=== PATIENT | female | born 1965 | race Caucasian/White ===

== ENCOUNTER 2016-06-01 16:57 | Emergency (ER) | payer OTHER ==
[2016-06-01] MEDS ORDERED: DIAZEPAM 5 MG/ML 2 ML SYRINGE IVP STA (17:14)
[2016-06-01] MEDS ORDERED: KETOROLAC 60 MG/2 ML VIAL IVP STA (17:14)
--- NOTE | 2016-06-01 17:21 | ED ---
General Adult HPI - General Source: patient, RN notes reviewed Mode of arrival: ambulatory Limitations: no limitations <Zane Fernandez - Last Filed: 06/01/16 18:25> <Tony Palmer - Last Filed: 06/01/16 19:22> - General Chief complaint: Back Pain/Injury Stated complaint: Back Pain Time Seen by Provider: 06/01/16 17:00 - History of Present Illness Initial comments: This is a 51-year-old female who comes in complaining of back spasms on the right side. Patient states she was mopping the floor when all of a sudden her mid back on the right side started to hurt and she states any kind of movement makes it worse per patient states taking a deep breath seems to make it worse as well. Patient denies any previous problems at this area. Patient denies any blunt trauma to this area. Patient denies any recent fever chills or cough. Patient states it just feels like a muscle spasm. Patient denies any dysuria hematuria urinary frequency. Prior to the mopping of the floor patient states she had no problems in that area or any problems with shortness of breath. Patient states now it hurts to take a deep breath but she is not short of breath. (Zane Fernandez) - Related Data Home Medications Medication Instructions Recorded Confirmed Ergocalciferol [Vitamin D2] 50,000 unit PO QMONTH 06/01/16 06/01/16 Lisinopril [Zestril] 10 mg PO DAILY 06/01/16 06/01/16 Oxybutynin Chloride 10 mg PO BID 06/01/16 06/01/16 buPROPion HCL [Wellbutrin SR] 100 mg PO DAILY 06/01/16 06/01/16 Previous Rx's Medication Instructions Recorded Diazepam [Valium] 5 mg PO Q6H #10 tab 06/01/16 Hydrocodone/Acetaminophen [[place] 1 each PO Q4HR PRN #20 tab 06/01/16 5-325] Ibuprofen [Motrin] 600 mg PO Q6HR PRN #20 tab 06/01/16 Allergies Allergy/AdvReac Type Severity Reaction Status Date / Time No Known Allergies Allergy Verified 06/01/16 17:37 Review of Systems ROS Other: All systems not noted in ROS Statement are negative. <Zane Fernandez - Last Filed: 06/01/16 18:25> ROS Other: All systems not noted in ROS Statement are negative. <Tony Palmer - Last Filed: 06/01/16 19:22> ROS Statement: Those systems with pertinent positive or pertinent negative responses have been documented in the HPI. Past Medical History Past Medical History: Pneumonia History of Any Multi-Drug Resistant Organisms: None Reported Past Surgical History: Cholecystectomy, Hysterectomy Past Psychological History: No Psychological Hx Reported Smoking Status: Never smoker Past Alcohol Use History: None Reported Past Drug Use History: None Reported <Zane Fernandez - Last Filed: 06/01/16 18:25> General Exam Limitations: no limitations <Zane Fernandez - Last Filed: 06/01/16 18:25> <Tony Palmer - Last Filed: 06/01/16 19:22> - General Exam Comments Initial Comments: GENERAL: Patient is well-developed and well-nourished. Patient is nontoxic and well- hydrated and is in moderate distress. ENT: Neck is soft and supple. No significant lymphadenopathy is noted. Oropharynx is clear. Moist mucous membranes. SKIN: Skin is clear with no lesions or rashes and otherwise unremarkable. NEUROLOGIC: Patient is alert and oriented x3. Cranial nerves II through XII are grossly intact. Motor and sensory are also intact. Normal speech, volume and content. Symmetrical smile. MUSCULOSKELETAL: Normal extremities with adequate strength and full range of motion. Patient's back is tender in the mid thoracic region on the right movement deftly makes this area more painful LYMPHATICS: No significant lymphadenopathy is noted PSYCHIATRIC: Normal psychiatric evaluation. (Zane Fernandez) Course <Zane Fernandez - Last Filed: 06/01/16 18:25> <Tony Palmer - Last Filed: 06/01/16 19:22> Vital Signs 06/01/16 16:57 Temperature 97.9 F Pulse Rate 84 Respiratory 20 Rate Blood Pressure 123/73 O2 Sat by Pulse 93 L Oximetry - Reevaluation(s) Reevaluation #1: 06/01/16 19:21 The patient was endorsed to me by Dr. Fernandez at our shift change. Patient is feeling improved she will be discharged home I did discuss findings with her and her . She will get a note tomorrow she does a lot of heavy lifting. (Tony Palemr) Medical Decision Making <Zane Fernandez - Last Filed: 06/01/16 18:25> <Tony Palmer - Last Filed: 06/01/16 19:22> - Medical Decision Making Patient's chest x-ray shows no acute abnormality. Patient received Valium and Toradol as well as Dilaudid for her pain it did improve her considerably. (Zane Fernandez) - Lab Data Lab Results 06/01/16 Range/Units 17:58 Urine Color Yellow Urine Appearance Clear (Clear) Urine pH 5.5 (5.0-8.0) Ur Specific [place] 1.022 (1.001-1.035) Urine Protein Trace H (Negative) Urine Glucose (UA) Negative (Negative) Urine Ketones Trace H (Negative) Urine Blood Negative (Negative) Urine Nitrate Negative (Negative) Urine Bilirubin Negative (Negative) Urine Urobilinogen 2.0 (<2.0) mg/dL Ur Leukocyte Esterase Negative (Negative) Disposition Time of Disposition: 18:26 <Zane Fernandez - Last Filed: 06/01/16 18:25> <Tony Palmer - Last Filed: 06/01/16 19:22> Clinical Impression: Thoracic myofascial strain Disposition: HOME SELF-CARE Condition: Good Instructions: Thoracic Back Strain (ED) Prescriptions: Diazepam [Valium] 5 mg PO Q6H #10 tab Hydrocodone/Acetaminophen [[place] 5-325] 1 each PO Q4HR PRN #20 tab PRN Reason: Pain Ibuprofen [Motrin] 600 mg PO Q6HR PRN #20 tab PRN Reason: For pain Referrals: Alex Dennis MD [Primary Care Provider] - 1-2 days
--- NOTE | 2016-06-01 17:43 | XR ---
EXAMINATION TYPE: XR chest 2V DATE OF EXAM: 06/01/2016 5:40 PM COMPARISON: None HISTORY: 51-year-old female difficulty breathing TECHNIQUE: PA and lateral views FINDINGS: The cardiomediastinal silhouette, aorta, and pulmonary vasculature are within normal limits. Diffuse interstitial and peribronchial opacities are present without consolidation or pleural effusion. Some strandy bibasilar atelectasis is also noted. IMPRESSION: Diffuse interstitial and peribronchial densities could represent bronchitis, uncontrolled asthma, or atypical pneumonias.
[2016-06-01 18:05] LABS: Appearance,Urine Clear (Clear); Bilirubin,Urine Negative (Negative); Glucose,Urine (UA) Negative (Negative); Ketones,Urine Trace (Negative); Leukocyte Esterase,Urine Negative (Negative); Nitrite,Urine Negative (Negative); PH, Urine 5.5 (5.0-8.0); Protein,Urine Trace (Negative); Specific Gravity,Urine 1.022 (1.001-1.035); UA Billing (MACRO vs. MICRO) CHEM
[2016-06-01] MEDS: HYDROmorphone 1 MG/ML 1 ML SYRINGE IVP STA ×2 (18:11→18:44)
[2016-06-01] MEDS: ONDANSETRON 4 MG/2 ML VIAL IVP STA ×2 (18:15→19:24)
[2016-06-01 19:32] VITALS: BP 142/70; PULSE 78; RESP 16; TEMP 97.8
== END 2016-06-01 19:31 | disposition home or self-care (01) ==
LOC: EC 16:57
DX: S29.012A Strain of muscle and tendon of back wall of thorax, initial encounter (principal); Z87.01 Personal history of pneumonia (recurrent); Z79.899 Other long term (current) drug therapy; X58.XXXA Exposure to other specified factors, initial encounter
CPT/HCPCS: 81003; 71020; 99283; 96374; 96375 ×3; J3360; J2405; J1885; J1170

== ENCOUNTER 2016-07-25 10:06 | Day surgery (SDC) | payer OTHER ==
[2016-07-22 14:58] VITALS: BMI 36.6
[~2016-07-25 10:06] MED LIST: LACTATED RINGERS 1,000 ML IV SCH
[2016-07-25 11:31] VITALS: RESP 16; TEMP 97.5
[2016-07-25] MEDS ORDERED: PROPOFOL 10 MG/ML 20 ML VIAL IV ONE (11:39)
--- NOTE | 2016-07-25 12:01 | P.PCN ---
Date of Procedure: 07/25/16 Procedure(s) Performed: BRIEF HISTORY: Patient is a 51-year-old pleasant white female, scheduled for an elective colonoscopy as a part of screening for colorectal neoplasia. PROCEDURE PERFORMED: Colonoscopy snare polypectomy. PREOPERATIVE DIAGNOSIS: Screening for colon cancer. IV sedation per Anesthesia. PROCEDURE: After informed consent was obtained, the patient, was brought into the endoscopy unit. IV conscious sedation was administered by Anesthesia under continuous monitoring. Initially the Olympus CF-160 flexible video colonoscope was then inserted in the rectum, gradually advanced into the cecum without any difficulty. Careful examination was performed as the scope was gradually being withdrawn. Ileocecal valve and the appendiceal orifice were visualized and appeared normal. Prep was excellent. In the cecum there was a 1 cm polyp removed by snare polypectomy. Mucosa of the cecum, ascending colon, appeared normal. There was a 5 and admitted transverse colon polyp status post polypectomy. There was a 1 cm descending colon polyp status post snare polypectomy. There were 3 polyps in the sigmoid colon measuring 1 cm in size removed by snare polypectomy. The rest of the transverse colon, descending colon, sigmoid colon, and rectum appeared normal. Retroflexion was performed in the rectum and no lesions were seen. The patient tolerated the procedure well. IMPRESSION: 1 cm cecal polyp status post polypectomy 5 mm transverse colon polyp status post snare polypectomy 1 cm descending colon polyp status post snare polypectomy 1 cm 3 sigmoid colon polyp status post polypectomy RECOMMENDATIONS: Findings of this examination were discussed with the patient as well as her family. She was advised to follow with the biopsy results. If the biopsy shows a tubular adenoma she can have a repeat colonoscopy in 3 years.
[2016-07-25 12:28] VITALS: BP 108/56; PULSE 61
--- NOTE | 2016-07-30 08:36 | CDI ---
Dr. Yesenia Stack, Due to new rules about charging for conscious sedation, we noted conflicting information about type of sedation between your procedure note (stating IV CONSCIOUS sedation under Procedure heading) and Anesthesia Record which states Unconscious sedation. Because the word CONSCIOUS now has a different meaning for billing, we need you to stop dictating conscious sedation when Anesthesia is involved on your cases. FOR THIS CASE, WE NEED YOU TO DO ADDENDUM TO YOUR PROCEDURE NOTE THAT SAYS "Unconscious" SEDATION instead of CONSCIOUS SEDATION. Thank you mamta much for your assistance with this important billing compliance documentation issue. Sincerely, Davis Linares--wood flooring specialist Jordana Gallagher MBA, STATION EXAMINER, [facility] Client Care Coordinator, Tyler Bertrand [phone] [facility] STATE HOSPITALSkyler
--- NOTE | 2016-09-03 11:54 | PCN ---
DATE OF SERVICE: 07/25/2016 ADDENDUM: General anesthesia was utilized instead of IV conscious sedation.
== END 2016-07-25 12:40 | disposition home or self-care (01) ==
LOC: ORWHC2ENDO 10:06
PROVIDERS: ATTEND Internal Medicine Gastroenterology
DX: Z12.11 Encounter for screening for malignant neoplasm of colon (principal); D12.0 Benign neoplasm of cecum; D12.5 Benign neoplasm of sigmoid colon; D12.4 Benign neoplasm of descending colon; I10 Essential (primary) hypertension; J45.909 Unspecified asthma, uncomplicated; Z88.8 Allergy status to other drugs, medicaments and biological substances; Z79.51 Long term (current) use of inhaled steroids; Z79.899 Other long term (current) drug therapy
CPT/HCPCS: 88305; 45385; J2704

== ENCOUNTER → 2016-10-01 | Outpatient (CLI) | payer OTHER ==
--- NOTE | 2016-10-01 14:45 | XR ---
EXAMINATION TYPE: XR lumbar spine 2 or 3V DATE OF EXAM: 10/01/2016 CLINICAL HISTORY: pain TECHNIQUE: Three views of the lumbar spine are submitted. COMPARISON: None. FINDINGS: There are 5 lumbar type vertebral bodies identified. The lumbar spine shows satisfactory alignment w ithout evidence of acute fracture or dislocation. Vertebral body heights are within normal limits. Mild degenerative disc space narrowing and spondylosis. The overlying soft tissue appears unremarkab le. IMPRESSION: No acute fracture or dislocation is seen in the lumbar spine. ICD 10 NO FRACTURE, INITIAL EVALUATION
== END | disposition home or self-care (01) ==
LOC: RADXRMAIN 14:29
PROVIDERS: ATTEND Emergency Medicine
DX: S39.012A Strain of muscle, fascia and tendon of lower back, initial encounter (principal)
CPT/HCPCS: 72100

== ENCOUNTER → 2016-10-09 | Outpatient (CLI) | payer OTHER ==
--- NOTE | 2016-10-09 09:50 | XR ---
EXAMINATION TYPE: XR Hip Complete LT DATE OF EXAM: 10/09/2016 CLINICAL HISTORY: Pain TECHNIQUE: AP and frogleg views of the left hip are obtained. COMPARISON: None. FINDINGS: There is no acute fracture/dislocation evident in the left hip. The joint space in the le ft hip appears within normal limits. The overlying soft tissue appears unremarkable. IMPRESSION: There is no acute fracture or dislocation in the left hip.
== END | disposition home or self-care (01) ==
LOC: RADXRMAIN 09:29
PROVIDERS: ATTEND Emergency Medicine
DX: M54.16 Radiculopathy, lumbar region (principal)
CPT/HCPCS: 73502

== ENCOUNTER → 2016-10-11 | Outpatient (CLI) | payer OTHER ==
--- NOTE | 2016-10-11 11:27 | MR ---
EXAMINATION TYPE: MR lumbar spine wo con DATE OF EXAM: 10/11/2016 COMPARISON: NONE HISTORY: strain of muscles of lower back TECHNIQUE: T1 and T2 axial and sagittal images of the lumbar spine are submitted. FINDINGS: There is no abnormal signal seen within the visualized paraspinal soft tissues. Artifact i s noted within the distal thoracic spinal cord at the T11-12 level. Vertebral body hemangioma is note d at L4 and L3 At L1-2 there is no disc herniation or canal stenosis. No foraminal encroachment. At L2-3 there is no disc herniation or canal stenosis. No foraminal encroachment. At L3-4 there is broad-based central disc bulging no evidence of canal stenosis or focal herniation. Mild bilateral foraminal encroachment. Intermediate signal within the left neural foramina on axial i mage 15 At L4-5 there is broad-based central and right paracentral disc bulging or small protrusion with mode rate effacement of thecal sac. Moderate right-sided foraminal encroachment and mild left-sided forami nal encroachment. Facet arthropathy noted with borderline canal stenosis. At L5-S1 there is no disc herniation or canal stenosis. No foraminal encroachment. Multilevel degenerative disc disease noted. There is a complicated mass only partially included on the exam within the pelvis measuring at least 8.5 cm. IMPRESSION: 1. Large complicated pelvic mass only partially included measuring at least 8.[address] abdo men pelvis. 2. Right paracentral disc bulging or small protrusion L4-L5 with borderline to mild canal stenosis an d moderate right-sided foraminal encroachment 3. Disc bulging L3-L4 but no canal stenosis or foraminal encroachment 4. There is intermediate signal within the left neural foramina at the L3-L4 level. Recommend the pat ient return for postcontrast imaging for further assessment to determine if this is related to extrud ed disc or other etiology.
== END | disposition home or self-care (01) ==
LOC: RADMRIMAIN 09:55
PROVIDERS: ATTEND Emergency Medicine
DX: M48.06 Spinal stenosis, lumbar region (principal); M51.26 Other intervertebral disc displacement, lumbar region
CPT/HCPCS: 72148

== ENCOUNTER → 2016-10-20 | Outpatient (CLI) | payer OTHER ==
--- NOTE | 2016-10-20 20:02 | CT ---
EXAMINATION TYPE: CT pelvis w con DATE OF EXAM: 10/20/2016 COMPARISON: NONE HISTORY: Pelvic mass found on MRI. CT DLP: 1035.00 mGycm Automated exposure control for dose reduction was used. CONTRAST: Performed with IV Contrast, patient injected with 100 mL of Omnipaque 300. FINDINGS: There is a 13 x 9 x 9 cm mixed attenuation mass in the midline pelvis above the urinary bladder. The uterus is not well defined. Urinary bladder distends smoothly. There is a cystic fluid collection in the cul-de-sac that measures 3 cm. The mass does not contain calcification. There is both soft tissue attenuation and fluid attenuation in the large pelvic mass. There is no sign of a bowel obstruction. Kidneys show no hydronephrosis. There is no evidence of a renal mass. There is no sign of appendicit is. I see no pelvic lymphadenopathy. IMPRESSION: THERE IS A LARGE MIDLINE MIXED ATTENUATION PELVIC MASS. THIS IS PROBABLY OF UTERINE OR OVARIAN ORIGIN AND I WOULD CONSIDER BOTH BENIGN AND MALIGNANT TUMOR. FOLLOW-UP IS RECOMMENDED.
== END | disposition home or self-care (01) ==
LOC: RADCTMAIN 17:28
PROVIDERS: ATTEND Family Medicine
DX: R19.00 Intra-abdominal and pelvic swelling, mass and lump, unspecified site (principal); R10.2 Pelvic and perineal pain
CPT/HCPCS: 72193; Q9967

== ENCOUNTER → 2016-11-18 | Outpatient (CLI) | payer OTHER ==
[2016-11-18 16:38] LABS: Basophils # (A) 0.1 k/uL (0-0.2); Basophils % (A) 1 %; CH 32.9; CHCM 34.8; Eosinophils # (A) 0.4 k/uL (0-0.7); Eosinophils % (A) 4 %; HCT 41.8 % (34.0-46.0); HDW 2.36; HGB 14.2 gm/dL (11.4-16.0); Luc # (Auto) 0.22; Luc % (Auto) 2; Lymphocytes # (A) 2.1 k/uL (1.0-4.8); Lymphocytes % (A) 21 %; MCH 32.1 pg (25.0-35.0); MCHC 33.9 g/dL (31.0-37.0); MCV 94.9 fL (80.0-100.0); Mean Platelet Volume 7.3; Monocytes # (A) 0.5 k/uL (0-1.0); Monocytes % (A) 5 %; Neutrophils # (A) 6.6 k/uL (1.3-7.7); Neutrophils % (A) 67 %; RBC 4.41 m/uL (3.80-5.40); RDW 13.7 % (11.5-15.5); WBC 9.9 k/uL (3.8-10.6); WBC (Perox) 9.86
[2016-11-18 16:53] LABS: Anion Gap 9 mmol/L; Blood Urea Nitrogen 9 mg/dL (7-17); Carbon Dioxide 24 mmol/L (22-30); Chloride 106 mmol/L (98-107); Glucose 78 mg/dL (74-99); Non-African American GFR(MDRD) >60 (>60 ml/min/1.73 sqM); Potassium 4.3 mmol/L (3.5-5.1); Sodium 139 mmol/L (137-145)
== END | disposition home or self-care (01) ==
LOC: LABPAT 16:04
PROVIDERS: ATTEND Obstetrics & Gynecology
DX: Z01.812 Encounter for preprocedural laboratory examination (principal); I10 Essential (primary) hypertension; N83.9 Noninflammatory disorder of ovary, fallopian tube and broad ligament, unspecified
CPT/HCPCS: 36415; 80051; 82565; 82947; 84520; 85025; 86850; 86900; 86901; 87086

== ENCOUNTER 2016-11-24 05:49 | Inpatient (IN) | payer OTHER ==
[2016-11-19 14:32] VITALS: BMI 36.6
[~2016-11-24 05:49] MED LIST changes: +DEXAMETHASONE SOD PHOSPHATE 10 MG/ML 1 ML VIAL IV ONE; -LACTATED RINGERS 1,000 ML IV SCH; +LIDOCAINE 1% 20 ML VIAL (10MG/ML) FOR IV START INTRADERMA PRN; +MIDAZOLAM 2 MG/2 ML VIAL IV PRN; +ONDANSETRON 4 MG/2 ML VIAL IVP ONE; +ONDANSETRON 4 MG/2 ML VIAL IVP PRN; +SCOPOLAMINE 1.5MG/72HR PATCH TRANSDERM ONE; +ceFAZolin 2 GM in SODIUM CHLORIDE 0.9% 100 ML IVPB ONE
[2016-11-24] MEDS: LACTATED RINGERS 1,000 ML IV SCH ×2 (06:33→20:02)
[2016-11-24] MEDS ORDERED: LACTATED RINGERS 1,000 ML IV ONE (08:03)
[2016-11-24] MEDS ORDERED: ONDANSETRON 4 MG/2 ML VIAL IVP PRN (08:06)
[2016-11-24] MEDS ORDERED: Acetaminophen-Codeine 300-30mg TAB PO PRN (08:06)
[2016-11-24] MEDS ORDERED: IBUPROFEN 600 MG TAB PO PRN (08:06)
[2016-11-24] MEDS ORDERED: METOCLOPRAMIDE 5 MG/ML 2 ML VIAL IVP PRN (08:06)
--- NOTE | 2016-11-24 08:06 | P.OP ---
Date of Procedure: 11/24/16 Preoperative Diagnosis: 14 cm complex right adnexal mass Postoperative Diagnosis: Pathology pending Procedure(s) Performed: Exploratory laparotomy, pelvic washings, bilateral salpingo-oophorectomy. Implants: Anesthesia: spinal Surgeon: Katelyn Gaviria Size Cutter #1: Geni Daphnie Estimated Blood Loss (ml): 50 IV fluids (ml): 800 Urine output (ml): 50 Pathology: other Condition: stable Disposition: PACU Indications for Procedure: Operative Findings: Description of Procedure: Patient is brought to the operating suite where general anesthetic is administered. She's placed in the dorsal supine position. The abdomen is prepped and draped in the usual sterile fashion, Black catheter to direct drainage. IV antibiotics given. The appropriate timeout is performed to assure proper patient and procedural identification. A low transverse skin incision is made in this is carried down through the subcutaneous tissue which is approximate 6-8 cm deep. Fascia is scored, isolated and extended bilaterally with curved Mandujano scissors. Peritoneum is next identified and incised. Pelvic washings are obtained and sent to pathology. The right pelvic mass is noted and brought up through the incision with the aid of 8D for retractor. It is clamped along the base with Dk clamps and removed intact, on broken. The pedicle is tied with 0 Vicryl suture , flashed, and retied. The left tube and ovary are then identified, brought into the incision with a Marcia clamp. Dk is used across the base of this as well, Mandujano scissors are used and it is removed and sent to pathology under separate cover for evaluation. The pedicle is tied with 0 Vicryl suture, flashed, retied for excellent hemostasis. Inspection now of the pelvis reveals it to be clean and dry. Urine is clear in the Black catheter. Peritoneum was allowed to close by secondary intention. Fascia is closed in a running fashion with 0 Vicryl suture for excellent reapproximation. Subcutaneous tissue is clean and dry. It is reapproximated with 3-0 Vicryl in a running fashion. 4-0 undyed Vicryl issues for final skin closure. Steri- Strips and Mastisol are applied to the wound. Black is noted to be draining clear urine. Patient is brought back to the recovery room in very good condition with stable vital signs including pulse of 82, blood pressure 135/87. All sponge needle and instrument counts are correct at the end of this procedure.
[2016-11-24] MEDS: HYDROmorphone 1 MG/ML 1 ML SYRINGE IVP PRN ×2 (08:25→08:40)
[2016-11-24] MEDS: diphenhydrAMINE 50 MG/ML 1 ML VIAL IVP PRN ×3 (08:26→21:09)
[2016-11-24] MEDS: KETOROLAC 30 MG/ML 1 ML VIAL IVP PRN ×3 (08:26→21:17)
[2016-11-24] MEDS ORDERED: GLYCOPYRROLATE 0.2 MG/ML 2 ML VIAL ONE (09:02)
[2016-11-24] MEDS ORDERED: fentaNYL (PF) 50 MCG/ML 2 ML AMP ONE (09:02)
[2016-11-24] MEDS ORDERED: ROCURONIUM BROMIDE 10 MG/ML 10 ML VIAL IV ONE (09:02)
[2016-11-24] MEDS ORDERED: MIDAZOLAM 2 MG/2 ML VIAL ONE (09:02)
[2016-11-24] MEDS ORDERED: NEOSTIGMINE 1 MG/ML 10 ML VIAL ONE (09:02)
[2016-11-24] MEDS ORDERED: PROPOFOL 10 MG/ML 20 ML VIAL IV ONE (09:02)
[2016-11-24] MEDS ORDERED: HYDROmorphone (PF) 1 MG/ML ONE (09:02)
[2016-11-24] MEDS ORDERED: SUCCINYLCHOLINE CHLORIDE 100 MG/5 ML SYR IV ONE (09:02)
[2016-11-24] MEDS ORDERED: LIDOCAINE 1% INJ 10MG/ML (20 ML MDV) ONE (09:02)
[2016-11-24] MEDS ORDERED: NALBUPHINE 10 MG/ML AMPUL IV ONE (09:25)
[2016-11-24] MEDS ORDERED: NALOXONE 0.4 MG/ML 1 ML VIAL IV PRN (09:44)
[2016-11-24] MEDS ORDERED: ALBUTEROL NEBULIZED 2.5 MG/3 ML INHALATION PRN (14:12)
[2016-11-24] MEDS: SIMETHICONE 80 MG CHEWABLE PO PRN (18:04)
[2016-11-24] MEDS: SYMBICORT 160-4.5 MCG INHALER INHALATION SCH (19:28)
[2016-11-24] MEDS: GABAPENTIN 100 MG CAP PO SCH (21:12)
[2016-11-24] MEDS: buPROPion SR 150 MG TABLET.ER PO SCH (21:12)
[2016-11-25] MEDS: diphenhydrAMINE 50 MG/ML 1 ML VIAL IVP PRN (04:34)
[2016-11-25] MEDS: KETOROLAC 30 MG/ML 1 ML VIAL IVP PRN ×2 (04:35→09:50)
[2016-11-25] MEDS: SIMETHICONE 80 MG CHEWABLE PO PRN (08:04)
[2016-11-25] MEDS ORDERED: ACETAMINOPHEN TAB 325 MG TAB PO PRN (08:07)
[2016-11-25] MEDS: GABAPENTIN 100 MG CAP PO SCH (08:24)
[2016-11-25] MEDS: buPROPion SR 150 MG TABLET.ER PO SCH (08:24)
[2016-11-25] MEDS ORDERED: LISINOPRIL 5 MG TAB PO SCH (09:00)
[2016-11-25] MEDS: SYMBICORT 160-4.5 MCG INHALER INHALATION SCH (09:19)
--- NOTE | 2016-11-25 09:52 | P.PN ---
Progress Note - Text Date:11/25 Time:720 Patient is status post vag hyst. Patient seen this morning with VAS score of 4. c/o of pruritus, no c/o nausea/vomiting, comfortable and doing well.
--- NOTE | 2016-11-25 10:32 | P.DS ---
Providers Date of admission: 11/24/16 05:49 Expected date of discharge: 11/25/16 Attending physician: Katelyn Gaviria Primary care physician: Stated None Hospital Course: This is a 51-year-old white female who presents with a history of an enlarged complex right ovarian mass measuring 13-14 cm in diameter. LIAM testing has been performed and reveals low likelihood for malignancy. Decision is made for exploratory laparotomy, pelvic washings, removal of right adnexal mass and left salpingo-oophorectomy. Patient is otherwise healthy, she is status post vaginal hysterectomy years ago for benign conditions. Please see my dictated history and physical for details. Patient underwent exploratory laparotomy, removal of the right adnexal mass, left salpingo-oophorectomy and pelvic washings under my care on 11/24/2016. She did well intraoperatively. Skin was closed with a subcuticular stitch, Steri-Strips and Mastisol applied. No intraoperative competitions, please see my dictated operative note for details. This morning the patient is doing very well. Her pain is well-controlled. She is voiding, ambulate and, passing flatus without difficulty. Vital signs are stable and she is afebrile. Incision is clean and dry, intact, Steri-Strips applied. She has mild peripheral itching but no rash, likely from the Duramorph spinal. Patient is being discharged home today in good condition. She is reminded to use her Tri-flow every several hours at home to avoid any pulmonary postoperative complications. She has a history of smoking and has slightly diminished airflow at the bases bilaterally. She will use [id number] ibuprofen products as needed for pain, 200 mg pills, 3 every 6 hours as needed. I've asked her to call me with any fevers shakes or chills, redness or drainage of the incision, with any difficulties breathing, with any pain not alleviated by ibuprofen, or indeed with any concerns. Pathology is pending at the time of this report. No driving, no intercourse, no heavy lifting, limited stair climbing. Patient Condition at Discharge: Good Plan - Discharge Summary New Discharge Prescriptions: No Action Oxybutynin Chloride 5 mg PO BID Budesonide-Formot 160-4.5 Mcg [Symbicort 160-4.5 Mcg Inhaler] 1 - 2 puff INHALATION RT-BID Albuterol Inhaler [Ventolin Hfa Inhaler] 1 - 2 puff INHALATION RT-Q6H PRN PRN Reason: Dyspnea Lisinopril [Zestril] 5 mg PO DAILY Gabapentin [Neurontin] 100 mg PO BID buPROPion SR [Wellbutrin SR] 150 mg PO BID Discharge Medication List Oxybutynin Chloride 5 mg PO BID 06/01/16 [History] Albuterol Inhaler [Ventolin Hfa Inhaler] 1 - 2 puff INHALATION RT-Q6H PRN [History] Budesonide-Formot 160-4.5 Mcg [Symbicort 160-4.5 Mcg Inhaler] 1 - 2 puff INHALATION RT-BID 07/22/16 [History] Gabapentin [Neurontin] 100 mg PO BID 11/19/16 [History] Lisinopril [Zestril] 5 mg PO DAILY 11/19/16 [History] buPROPion SR [Wellbutrin SR] 150 mg PO BID 11/24/16 [History] Follow up Appointment(s)/Referral(s): Katelyn Gaviria MD [STAFF PHYSICIAN] - 2 Weeks Discharge Disposition: HOME SELF-CARE
[2016-11-25 12:10] VITALS: BP 95/52; PULSE 79; RESP 20; TEMP 97.6
== END 2016-11-25 13:12 | disposition home or self-care (01) | DRG 743 ==
LOC: 2ORWHC 05:49 → 6PED 08:17
PROVIDERS: ADMIT Obstetrics & Gynecology; ATTEND Obstetrics & Gynecology
PROC: 0UT70ZZ Resection of Bilateral Fallopian Tubes, Open Approach (ICD-10-PCS; principal; 2016-11-24 07:00)
PROC: 0UT20ZZ Resection of Bilateral Ovaries, Open Approach (ICD-10-PCS; principal; 2016-11-24 07:00)
DX: N83.9 Noninflammatory disorder of ovary, fallopian tube and broad ligament, unspecified (principal); F32.9 Major depressive disorder, single episode, unspecified; J44.9 Chronic obstructive pulmonary disease, unspecified; J45.909 Unspecified asthma, uncomplicated; Z87.891 Personal history of nicotine dependence; K21.9 Gastro-esophageal reflux disease without esophagitis; F17.200 Nicotine dependence, unspecified, uncomplicated
CPT/HCPCS: 86850; 86900; 86901; 88108; 88305; 88307; 94640; 94760

== ENCOUNTER 2017-10-01 05:12 | Emergency (ER) | payer OTHER ==
[2017-10-01] MEDS ORDERED: IPRATROPIUM-ALBUTEROL 3 ML NEB INHALATION STA (05:28)
[2017-10-01] MEDS ORDERED: IPRATROPIUM 0.5 MG/2.5 ML NEBU INHALATION STA (05:32)
[2017-10-01] MEDS ORDERED: SODIUM CHLORIDE 0.9% 1,000 ML IV STA (05:32)
[2017-10-01] MEDS ORDERED: EPINEPHrine 1 MG/ML 1 ML AMP SQ STA (05:32)
[2017-10-01] MEDS ORDERED: ALBUTEROL NEBULIZED 2.5 MG/3 ML INHALATION STA (05:32)
[2017-10-01] MEDS ORDERED: methylPREDNISolone SOD SUCCI 125 MG/2 ML VIAL IV STA (05:32)
[2017-10-01 06:06] LABS: Basophils % (A) 0 %; Eosinophils # (A) 0.3 k/uL (0-0.7); Eosinophils % (A) 3 %; HCT 42.7 % (34.0-46.0); HGB 14.9 gm/dL (11.4-16.0); Lymphocytes # (A) 1.6 k/uL (1.0-4.8); Lymphocytes % (A) 14 %; MCH 31.2 pg (25.0-35.0); MCHC 34.9 g/dL (31.0-37.0); MCV 89.4 fL (80.0-100.0); Monocytes # (A) 0.7 k/uL (0-1.0); Monocytes % (A) 6 %; Neutrophils # (A) 8.1 k/uL (1.3-7.7); Neutrophils % (A) 75 %; Platelet Count 270 k/uL (150-450); RBC 4.77 m/uL (3.80-5.40); RDW 12.8 % (11.5-15.5); WBC 10.8 k/uL (3.8-10.6)
[2017-10-01 06:18] LABS: D-Dimer 0.33 mg/L FEU (<0.60); Partial Thromboplastin Time 25.3 sec (22.0-30.0); Prothrombin Time 9.5 sec (9.0-12.0)
[2017-10-01 06:20] LABS: ALT 39 U/L (9-52); AST 25 U/L (14-36); Alkaline Phosphatase 112 U/L (38-126); Anion Gap 12 mmol/L; Blood Urea Nitrogen 10 mg/dL (7-17); Calcium 9.3 mg/dL (8.4-10.2); Carbon Dioxide 21 mmol/L (22-30); Chloride 111 mmol/L (98-107); Glucose 113 mg/dL (74-99); Sodium 144 mmol/L (137-145); Total Bilirubin 0.4 mg/dL (0.2-1.3); Total Protein 6.3 g/dL (6.3-8.2)
--- NOTE | 2017-10-01 06:28 | ED ---
SOB HPI - General Chief Complaint: Shortness of Breath Stated Complaint: asthma attack Time Seen by Provider: 10/01/17 05:28 Source: patient Mode of arrival: ambulatory Limitations: no limitations - History of Present Illness Initial Comments: 52 years old female has a history of asthma presents with extreme shortness of breath, it hurts to take a deep breath shortness of breath got worse over 24 hours she has been using her nebulizers but then now been effective denies any fever no chills she does cough she is not bringing up any phlegm. - Related Data Home Medications Medication Instructions Recorded Confirmed Oxybutynin Chloride 5 mg PO BID 06/01/16 10/01/17 Albuterol Inhaler [Ventolin Hfa 1 - 2 puff INHALATION RT-Q6H PRN 07/22/16 Inhaler] Budesonide-Formot 160-4.5 Mcg 1 - 2 puff INHALATION RT-BID 07/22/16 10/01/17 [Symbicort 160-4.5 Mcg Inhaler] Gabapentin [Neurontin] 100 mg PO BID 11/19/16 10/01/17 Lisinopril [Zestril] 5 mg PO DAILY 11/19/16 10/01/17 buPROPion SR [Wellbutrin SR] 150 mg PO BID 11/24/16 10/01/17 Progesterone, Micronized 200 mg PO 10/01/17 [Progesterone] Previous Rx's Medication Instructions Recorded Azithromycin [Zithromax Tri-Jean Paul] 500 mg PO DAILY #3 tab 10/01/17 predniSONE 50 mg PO DAILY #5 tab 10/01/17 Allergies Allergy/AdvReac Type Severity Reaction Status Date / Time Ruhxopq-Weq-Teq Reductase Allergy leg pain Verified 11/24/16 10:14 Inhibitor Review of Systems ROS Statement: Those systems with pertinent positive or pertinent negative responses have been documented in the HPI. ROS Other: All systems not noted in ROS Statement are negative. Past Medical History Past Medical History: Asthma, Cancer, Hypertension Additional Past Medical History / Comment(s): OVER-ACTIVE BLADDER, SKIN CANCER, HERNIATED DISCS AND BACK PAIN., STATES MASS ON OVARY. History of Any Multi-Drug Resistant Organisms: None Reported Past Surgical History: Cholecystectomy, Hysterectomy, Tubal Ligation Additional Past Surgical History / Comment(s): PARTIAL HYSTERECTOMY. Past Anesthesia/Blood Transfusion Reactions: Motion Sickness, Postoperative Nausea & Vomiting (PONV) Past Psychological History: ADD/ADHD, Anxiety Smoking Status: Former smoker - Past Family History Mother Family Medical History: No Reported History Father Family Medical History: Cancer Additional Family Medical History / Comment(s): PROSTATE CANCER General Exam - General Exam Comments Initial Comments: General: The patient is awake and alert, in no distress, and does not appear acutely ill. Skin: Skin is warm and dry and no rashes or lesions are noted. Eye: Pupils are equal, round and reactive to light, extra-ocular movements are intact; there is normal conjunctiva bilaterally. Ears, nose, mouth and throat: There are moist mucous membranes and no oral lesions. Neck: The neck is supple, there is no tenderness or JVD. Cardiovascular: There is a regular rate and rhythm. No murmur, rub or gallop is appreciated. Respiratory: To auscultation bilateral, barely moving any air respiratory rate is 24 Gastrointestinal: Soft, non-distended, non-tender abdomen without masses or organomegaly noted. There is no rebound or guarding present. Bowel sounds are unremarkable. Back: There is no tenderness to palpation in the midline. There is no obvious deformity. Musculoskeletal: Normal ROM, no tenderness, There is no pedal edema. There is no calf tenderness or swelling. No cords were appreciated. Neurological: CN II-XII intact, Cranial nerves III through XII are intact. There are no obvious motor or sensory deficits. Coordination appears grossly intact. Speech is normal. Psychiatric: Cooperative, appropriate mood & affect, normal judgment. Limitations: no limitations Course Vital Signs 10/01/17 10/01/17 10/01/17 05:14 05:31 05:43 Temperature 98.2 F Pulse Rate 77 68 Respiratory 24 20 Rate Blood Pressure 119/65 O2 Sat by Pulse 97 Oximetry 10/01/17 10/01/17 06:11 06:16 Temperature Pulse Rate 82 75 Respiratory 20 Rate Blood Pressure 134/76 O2 Sat by Pulse 98 Oximetry EKG is normal sinus rhythm ventricular rate is 67 SC interval is 146 QRS duration is 90 QT/QTc is 390/[birth year]1949 CK G does not reveal any ST elevation or ST depression him and noticed some mild T-wave inversion in lead 3 She is reassessed at term 640, she is moving air better she is able to carry on a conversation and thoracic, suspected infiltrate on the right side she be gone home on Levaquin 500 milligrams once daily for next 5 days prednisone 50 mg 1 tablet daily for next 5 days and I'll refer her to Dr. Veliz Medical Decision Making - Lab Data Result diagrams: 10/01/17 05:55 10/01/17 05:55 Lab Results 10/01/17 10/01/17 10/01/17 Range/Units 05:55 05:55 05:55 WBC 10.8 H (3.8-10.6) k/uL RBC 4.77 (3.80-5.40) m/uL Hgb 14.9 (11.4-16.0) gm/dL Hct 42.7 (34.0-46.0) % MCV 89.4 (80.0-100.0) fL MCH 31.2 (25.0-35.0) pg MCHC 34.9 (31.0-37.0) g/dL RDW 12.8 (11.5-15.5) % Plt Count 270 (150-450) k/uL Neutrophils % 75 % Lymphocytes % 14 % Monocytes % 6 % Eosinophils % 3 % Basophils % 0 % Neutrophils # 8.1 H (1.3-7.7) k/uL Lymphocytes # 1.6 (1.0-4.8) k/uL Monocytes # 0.7 (0-1.0) k/uL Eosinophils # 0.3 (0-0.7) k/uL Basophils # 0.0 (0-0.2) k/uL PT (9.0-12.0) sec INR (<1.2) APTT (22.0-30.0) sec D-Dimer (<0.60) mg/L FEU Sodium 144 (137-145) mmol/L Potassium 4.0 (3.5-5.1) mmol/L Chloride 111 H (98-107) mmol/L Carbon Dioxide 21 L (22-30) mmol/L Anion Gap 12 mmol/L BUN 10 (7-17) mg/dL Creatinine 0.63 (0.52-1.04) mg/dL Est GFR (CKD-EPI)AfAm >90 (>60 ml/min/1.73 sqM) Est GFR (CKD-EPI)NonAf >90 (>60 ml/min/1.73 sqM) Glucose 113 H (74-99) mg/dL Calcium 9.3 (8.4-10.2) mg/dL Total Bilirubin 0.4 (0.2-1.3) mg/dL AST 25 (14-36) U/L ALT 39 (9-52) U/L Alkaline Phosphatase 112 (38-126) U/L Total Creatine Kinase 113 (30-135) U/L CK-MB (CK-2) 0.8 (0.0-2.4) ng/mL CK-MB (CK-2) Rel Index 0.7 Troponin I <0.012 (0.000-0.034) ng/mL Total Protein 6.3 (6.3-8.2) g/dL Albumin 4.0 (3.5-5.0) g/dL 10/01/17 Range/Units 05:55 WBC (3.8-10.6) k/uL RBC (3.80-5.40) m/uL Hgb (11.4-16.0) gm/dL Hct (34.0-46.0) % MCV (80.0-100.0) fL MCH (25.0-35.0) pg MCHC (31.0-37.0) g/dL RDW (11.5-15.5) % Plt Count (150-450) k/uL Neutrophils % % Lymphocytes % % Monocytes % % Eosinophils % % Basophils % % Neutrophils # (1.3-7.7) k/uL Lymphocytes # (1.0-4.8) k/uL Monocytes # (0-1.0) k/uL Eosinophils # (0-0.7) k/uL Basophils # (0-0.2) k/uL PT 9.5 (9.0-12.0) sec INR 1.0 (<1.2) APTT 25.3 (22.0-30.0) sec D-Dimer 0.33 (<0.60) mg/L FEU Sodium (137-145) mmol/L Potassium (3.5-5.1) mmol/L Chloride (98-107) mmol/L Carbon Dioxide (22-30) mmol/L Anion Gap mmol/L BUN (7-17) mg/dL Creatinine (0.52-1.04) mg/dL Est GFR (CKD-EPI)AfAm (>60 ml/min/1.73 sqM) Est GFR (CKD-EPI)NonAf (>60 ml/min/1.73 sqM) Glucose (74-99) mg/dL Calcium (8.4-10.2) mg/dL Total Bilirubin (0.2-1.3) mg/dL AST (14-36) U/L ALT (9-52) U/L Alkaline Phosphatase (38-126) U/L Total Creatine Kinase (30-135) U/L CK-MB (CK-2) (0.0-2.4) ng/mL CK-MB (CK-2) Rel Index Troponin I (0.000-0.034) ng/mL Total Protein (6.3-8.2) g/dL Albumin (3.5-5.0) g/dL Disposition Clinical Impression: Acute exacerbation of COPD with asthma Disposition: HOME SELF-CARE Condition: Good Instructions: Acute Bronchitis (ED) Prescriptions: Azithromycin [Zithromax Tri-Jean Paul] 500 mg PO DAILY #3 tab predniSONE 50 mg PO DAILY #5 tab Is patient prescribed a controlled substance at d/c from ED?: No Referrals: None,Stated [Primary Care Provider] - 1-2 days Barber Veliz MD [STAFF PHYSICIAN] - 1-2 days
[2017-10-01 06:32] LABS: Creatine Kinase 113 U/L (30-135)
[2017-10-01 06:46] LABS: Creatine Kinase MB 0.8 ng/mL (0.0-2.4); Troponin I <0.012 ng/mL (0.000-0.034)
[2017-10-01 06:56] VITALS: BP 149/72; PULSE 80; RESP 18; TEMP 97.9
--- NOTE | 2017-10-01 07:16 | XR ---
EXAM: XR Chest, 2 Views. CLINICAL HISTORY: Reason: difficulty breathing TECHNIQUE: Frontal and lateral views of the chest. COMPARISON: . FINDINGS: Lungs: Atelectasis versus consolidation within the lingula. Lingular pneumonia not excluded. Mild atelectasis or scarring is seen in both lung bases. No diffuse interstitial abnormality. Lungs are mildly hypoinflated. Pleural spaces: No pleural effusions. No pneumothorax. Heart: Unremarkable. No cardiomegaly. Mediastinum: No mediastinal widening or shift. Bones: Unremarkable. No acute fracture. IMPRESSION: Atelectasis versus consolidation within the lingula. Please correlate with respiratory exam to exclude lingular pneumonia .
== END 2017-10-01 07:03 | disposition home or self-care (01) ==
LOC: EC 05:12
DX: J44.1 Chronic obstructive pulmonary disease with (acute) exacerbation (principal); I10 Essential (primary) hypertension; N32.81 Overactive bladder; F41.9 Anxiety disorder, unspecified; Z87.891 Personal history of nicotine dependence; Z79.51 Long term (current) use of inhaled steroids; Z79.899 Other long term (current) drug therapy; Z88.8 Allergy status to other drugs, medicaments and biological substances
CPT/HCPCS: 36415; 94640; 93005; 85379; 80053; 82550; 82553; 84484; 85025; 85610; 85730; 71046; 99285; 96374; 96361; J2930

== ENCOUNTER → 2018-10-11 | Outpatient (CLI) | payer OTHER | END | disposition home or self-care (01) | LOC: LABWHC1 12:37 | PROVIDERS: ATTEND Obstetrics & Gynecology | DX: D64.9 Anemia, unspecified (principal); R53.83 Other fatigue; N95.1 Menopausal and female climacteric states; E34.50 Androgen insensitivity syndrome, unspecified; R61 Generalized hyperhidrosis | CPT/HCPCS: 36415; 82670; 83001; 84403; 84443; 84481 ==

== ENCOUNTER → 2018-11-16 | Outpatient (CLI) | payer OTHER ==
--- NOTE | 2018-11-18 08:51 | MM ---
Reason for exam: screening (asymptomatic). Last mammogram was performed 2 years and 4 months ago. History: Patient is postmenopausal and history of other cancer. Family history of premenopausal breast cancer in cousin at age 35. Physical Findings: A clinical breast exam by your physician is recommended on an annual basis and results should be correlated with mammographic findings. MG 3D Screening Mammo W/Cad Bilateral CC and MLO view(s) were taken. Prior study comparison: July 10, 2016, mammogram, performed at [facility]. December 24, 2009, bilateral digital screening mammogram. March 12, 2001, bilateral screening mammogram. The breast tissue is heterogeneously dense. This may lower the sensitivity of mammography. Increasing nodularity inner upper left breast middle third position. ASSESSMENT: Incomplete: need additional imaging evaluation, BI-RAD 0 RECOMMENDATION: Special view mammogram and ultrasound of the left breast. [facility] will attempt to contact patient to return for supplemental views and ultrasound.
== END | disposition home or self-care (01) ==
LOC: RADMAMWWP 15:03
PROVIDERS: ATTEND Obstetrics & Gynecology
DX: Z12.31 Encounter for screening mammogram for malignant neoplasm of breast (principal); Z80.3 Family history of malignant neoplasm of breast
CPT/HCPCS: 77063; 77067

== ENCOUNTER → 2018-12-03 | Outpatient (CLI) | payer OTHER ==
--- NOTE | 2018-12-06 08:58 | MM ---
Reason for exam: additional evaluation requested from abnormal screening. Last mammogram was performed 1 month ago. History: Patient is postmenopausal and history of other cancer. Family history of premenopausal breast cancer in cousin at age 35. Taking estrogen for 1 year 6 months. Taking progesterone for 1 year 6 months. Physical Findings: Nurse did not find any significant physical abnormalities on exam. MG 3D Work Up W/Cad LT Spot compression CC, spot compression MLO, and LM view(s) were taken of the left breast. Prior study comparison: November 16, 2018, bilateral MG 3d screening mammo w/cad. July 10, 2016, mammogram, performed at [facility]. The breast tissue is heterogeneously dense. This may lower the sensitivity of mammography. There are round circumscribed masses on the left upper inner quadrant that persist on additional views measuring 7mm, 7mm and a questionable vague 3rd mass measuring 6mm. These results were verbally communicated with the patient and result sheet given to the patient on 12/03/18. ASSESSMENT: Incomplete: need additional imaging evaluation, BI-RAD 0 RECOMMENDATION: Ultrasound of the left breast. upper inner quadrant
--- NOTE | 2018-12-06 09:00 | USB ---
Reason for exam: additional evaluation requested from abnormal screening. History: Patient is postmenopausal and history of other cancer. Family history of premenopausal breast cancer in cousin at age 35. Taking estrogen for 1 year 6 months. Taking progesterone for 1 year 6 months. US Breast Workup Limited LT Left limited breast ultrasound including focal area of concern, retroareolar and axilla demonstrates a 7 x 6 x 7mm oval, cystic lesion at 9 o'clock, a 8 x 7 x 8mm oval, mixed, complicated cyst at 10 o'clock and a 5 x 6 x 5mm oval, mixed, complicated cyst at 12 o'clock. Sonographic findings correspond to mammographic findings. These results were verbally communicated with the patient and result sheet given to the patient on 12/03/18. ASSESSMENT: Benign, BI-RAD 2 RECOMMENDATION: Return to routine screening mammogram schedule for both breasts.
== END | disposition home or self-care (01) ==
LOC: RADMAMWWP 14:30
PROVIDERS: ATTEND Obstetrics & Gynecology
DX: R92.8 Other abnormal and inconclusive findings on diagnostic imaging of breast (principal)
CPT/HCPCS: 77061; 77065

== ENCOUNTER → 2019-12-05 | Outpatient (CLI) | payer OTHER ==
--- NOTE | 2019-12-05 17:04 | US ---
EXAMINATION TYPE: US venous doppler duplex LE RT DATE OF EXAM: 12/05/2019 4:55 PM COMPARISON: Prior right lower extremity venous ultrasound November 09, 2014 CLINICAL HISTORY: R22.41 Swelling right lower limb. Right ankle swelling/ palpable lump SIDE PERFORMED: Right TECHNIQUE: The lower extremity deep venous system is examined utilizing real time linear array sonog heide with graded compression, doppler sonography and color-flow sonography. VESSELS IMAGED: External Iliac Vein (EIV) Common Femoral Vein Deep Femoral Vein Greater Saphenous Vein * Femoral Vein Popliteal Vein Small Saphenous Vein * Proximal Calf Veins (* superficial vessels) Right Leg: Negative for DVT At the patient's palpable at the outer right ankle, there a cystic area measuring 5 x 5 x 7 mm Grayscale, color doppler, spectral doppler imaging performed of the deep veins of the right lower e xtremity. There is normal flow, compressibility, vascular waveforms. IMPRESSION: No ultrasound evidence for acute DVT in the right lower extremity. Thin-walled subcentim eter cyst at area of patient's palpable lump in the deep subcutaneous fat is nonspecific and needs to be correlated clinically.
== END | disposition home or self-care (01) ==
LOC: RADUSWWP 16:36
PROVIDERS: ATTEND Nurse Practitioner Family
DX: R22.41 Localized swelling, mass and lump, right lower limb (principal)

== ENCOUNTER 2020-07-11 02:29 | Emergency (ER) | payer OTHER ==
[2020-07-11 02:35] VITALS: TEMP 97.5
[2020-07-11] MEDS ORDERED: SODIUM CHLORIDE 0.9% 1,000 ML IV STA ×2 (02:51)
[2020-07-11] MEDS ORDERED: ONDANSETRON 4 MG/2 ML VIAL IVP STA (02:51)
[2020-07-11] MEDS ORDERED: MORPHINE SULFATE 4 MG/ML SYRINGE IV STA (02:51)
--- NOTE | 2020-07-11 02:52 | ED ---
Abdominal Pain HPI - General Chief Complaint: Abdominal Pain Stated Complaint: Abd pain Time Seen by Provider: 07/11/20 02:31 Source: patient, RN notes reviewed, old records reviewed Mode of arrival: ambulatory Limitations: no limitations - History of Present Illness Initial Comments: This is a 55-year-old female to the ER for evaluation patient presents today for evaluation of abdominal pain. Patient has persistent abdominal pain and not feeling well. Patient is severe) 7 onset of right flank pain right-sided abdominal pain right lower quadrant abdominal pain. Denying any fevers does feel nauseous and vomiting and feels very delusional secondary to severity of the pain. States she's never had such severe pain before, no history of kidney stones. No trauma. MD Complaint: abdominal pain -: days(s) Location: diffuse Radiation: R flank Migration to: RLQ, suprapubic Severity: severe Severity scale (1-10): 10 Quality: stabbing Consistency: constant Improves With: nothing Worsens With: nothing Context: foreign travel Associated Symptoms: nausea, vomiting Treatments Prior to Arrival: NSAIDs - Related Data Home Medications Medication Instructions Recorded Confirmed Oxybutynin Chloride 5 mg PO BID 06/01/16 10/01/17 Albuterol Inhaler (Mhu) [Ventolin 1 - 2 puff INHALATION RT-Q6H PRN 07/22/16 10/01/17 Hfa Inhaler] Budesonide-Formot 160-4.5 Mcg 1 - 2 puff INHALATION RT-BID 07/22/16 10/01/17 [Symbicort 160-4.5 Mcg Inhaler] Gabapentin [Neurontin] 100 mg PO BID 11/19/16 10/01/17 lisinopriL [Zestril] 5 mg PO DAILY 11/19/16 10/01/17 buPROPion SR [Wellbutrin SR] 150 mg PO BID 11/24/16 10/01/17 Progesterone, Micronized 200 mg PO 10/01/17 [Progesterone] Previous Rx's Medication Instructions Recorded Azithromycin [Zithromax Tri-Jean Paul] 500 mg PO DAILY #3 tab 10/01/17 predniSONE 50 mg PO DAILY #5 tab 10/01/17 Ketorolac [Toradol] 10 mg PO Q6HR #20 tab 07/15/20 Allergies Allergy/AdvReac Type Severity Reaction Status Date / Time Yxwzmkb-Lcz-Bro Reductase Allergy leg pain Verified 07/11/20 02:35 Inhibitor Review of Systems ROS Statement: Those systems with pertinent positive or pertinent negative responses have been documented in the HPI. ROS Other: All systems not noted in ROS Statement are negative. Past Medical History Past Medical History: Asthma, Cancer, Hypertension Additional Past Medical History / Comment(s): OVER-ACTIVE BLADDER, SKIN CANCER, HERNIATED DISCS AND BACK PAIN., STATES MASS ON OVARY. History of Any Multi-Drug Resistant Organisms: None Reported Past Surgical History: Cholecystectomy, Hysterectomy, Tubal Ligation Additional Past Surgical History / Comment(s): PARTIAL HYSTERECTOMY. Past Anesthesia/Blood Transfusion Reactions: Motion Sickness, Postoperative Nausea & Vomiting (PONV) Past Psychological History: ADD/ADHD, Anxiety Smoking Status: Never smoker Past Alcohol Use History: Occasional Past Drug Use History: None Reported - Past Family History Mother Family Medical History: No Reported History Father Family Medical History: Cancer Additional Family Medical History / Comment(s): PROSTATE CANCER General Exam Limitations: no limitations General appearance: alert, in no apparent distress Head exam: Present: atraumatic, normocephalic, normal inspection Eye exam: Present: normal appearance, PERRL, EOMI. Absent: scleral icterus, conjunctival injection, periorbital swelling ENT exam: Present: normal exam, mucous membranes moist Neck exam: Present: normal inspection. Absent: tenderness, meningismus, lymphadenopathy Respiratory exam: Present: normal lung sounds bilaterally. Absent: respiratory distress, wheezes, rales, rhonchi, stridor Cardiovascular Exam: Present: regular rate, normal rhythm, normal heart sounds. Absent: systolic murmur, diastolic murmur, rubs, gallop, clicks GI/Abdominal exam: Present: soft, normal bowel sounds. Absent: distended, tenderness, guarding, rebound, rigid Extremities exam: Present: normal inspection, full ROM, normal capillary refill. Absent: tenderness, pedal edema, joint swelling, calf tenderness Back exam: Present: normal inspection Neurological exam: Present: alert, oriented X3, CN II-XII intact Psychiatric exam: Present: normal affect, normal mood Skin exam: Present: warm, dry, intact, normal color. Absent: rash Course Vital Signs 07/11/20 07/11/20 02:33 04:14 Temperature 97.5 F L Pulse Rate 78 58 L Respiratory 20 16 Rate Blood Pressure 155/87 136/74 O2 Sat by Pulse 98 98 Oximetry - Reevaluation(s) Reevaluation #1: Medical record is reviewed Patient symptoms improved here in the ER Patient family informed of results, questions have been answered Patient's pain again is improving she feels good for discharge home Medical Decision Making - Medical Decision Making 55 female DEL with severe flank pain. Positive for kidney stone. Patient given treatment here in the emergency department, symptoms are improved. Patient can be discharged home - Lab Data Result diagrams: 07/11/20 03:01 07/11/20 03:01 Lab Results 07/11/20 07/11/20 07/11/20 Range/Units 03:01 03:01 03:01 WBC 10.1 (3.8-10.6) k/uL RBC 5.03 (3.80-5.40) m/uL Hgb 15.7 (11.4-16.0) gm/dL Hct 45.9 (34.0-46.0) % MCV 91.3 (80.0-100.0) fL MCH 31.2 (25.0-35.0) pg MCHC 34.2 (31.0-37.0) g/dL RDW 12.8 (11.5-15.5) % Plt Count 281 (150-450) k/uL MPV 7.9 Neutrophils % 71 % Lymphocytes % 19 % Monocytes % 4 % Eosinophils % 4 % Basophils % 1 % Neutrophils # 7.1 (1.3-7.7) k/uL Lymphocytes # 1.9 (1.0-4.8) k/uL Monocytes # 0.4 (0-1.0) k/uL Eosinophils # 0.4 (0-0.7) k/uL Basophils # 0.1 (0-0.2) k/uL PT 10.4 (9.0-12.0) sec INR 1.0 (<1.2) APTT 22.5 (22.0-30.0) sec Sodium 138 (137-145) mmol/L Potassium 4.1 (3.5-5.1) mmol/L Chloride 106 (98-107) mmol/L Carbon Dioxide 22 (22-30) mmol/L Anion Gap 10 mmol/L BUN 16 (7-17) mg/dL Creatinine 0.85 (0.52-1.04) mg/dL Est GFR (CKD-EPI)AfAm >90 (>60 ml/min/1.73 sqM) Est GFR (CKD-EPI)NonAf 78 (>60 ml/min/1.73 sqM) Glucose 159 H (74-99) mg/dL Plasma Lactic Acid Glenn (0.7-2.0) mmol/L Calcium 10.2 (8.4-10.2) mg/dL Total Bilirubin 0.9 (0.2-1.3) mg/dL AST 25 (14-36) U/L ALT 33 (4-34) U/L Alkaline Phosphatase 98 (38-126) U/L Total Protein 7.2 (6.3-8.2) g/dL Albumin 4.6 (3.5-5.0) g/dL Amylase 49 (30-110) U/L Lipase 82 (23-300) U/L / Range/Units 03:01 WBC (3.8-10.6) k/uL RBC (3.80-5.40) m/uL Hgb (11.4-16.0) gm/dL Hct (34.0-46.0) % MCV (80.0-100.0) fL MCH (25.0-35.0) pg MCHC (31.0-37.0) g/dL RDW (11.5-15.5) % Plt Count (150-450) k/uL MPV Neutrophils % % Lymphocytes % % Monocytes % % Eosinophils % % Basophils % % Neutrophils # (1.3-7.7) k/uL Lymphocytes # (1.0-4.8) k/uL Monocytes # (0-1.0) k/uL Eosinophils # (0-0.7) k/uL Basophils # (0-0.2) k/uL PT (9.0-12.0) sec INR (<1.2) APTT (22.0-30.0) sec Sodium (137-145) mmol/L Potassium (3.5-5.1) mmol/L Chloride (98-107) mmol/L Carbon Dioxide (22-30) mmol/L Anion Gap mmol/L BUN (7-17) mg/dL Creatinine (0.52-1.04) mg/dL Est GFR (CKD-EPI)AfAm (>60 ml/min/1.73 sqM) Est GFR (CKD-EPI)NonAf (>60 ml/min/1.73 sqM) Glucose (74-99) mg/dL Plasma Lactic Acid Glenn 1.7 (0.7-2.0) mmol/L Calcium (8.4-10.2) mg/dL Total Bilirubin (0.2-1.3) mg/dL AST (14-36) U/L ALT (4-34) U/L Alkaline Phosphatase (38-126) U/L Total Protein (6.3-8.2) g/dL Albumin (3.5-5.0) g/dL Amylase (30-110) U/L Lipase (23-300) U/L - Radiology Data Radiology results: report reviewed (CT abdomen and pelvis is positive for right kidney stone), image reviewed Disposition Clinical Impression: Right kidney stone, Right ureteral stone Disposition: HOME SELF-CARE Condition: Good Instructions (If sedation given, give patient instructions): Kidney Stones (ED) Prescriptions: Ketorolac [Toradol] 10 mg PO Q6HR #20 tab Is patient prescribed a controlled substance at d/c from ED?: No Referrals: Aston Gonzalez MD [STAFF PHYSICIAN] - 1-2 days
[2020-07-11 03:27] LABS: Basophils # (A) 0.1 k/uL (0-0.2); Basophils % (A) 1 %; Eosinophils # (A) 0.4 k/uL (0-0.7); Eosinophils % (A) 4 %; HCT 45.9 % (34.0-46.0); HGB 15.7 gm/dL (11.4-16.0); Lymphocytes # (A) 1.9 k/uL (1.0-4.8); Lymphocytes % (A) 19 %; MCH 31.2 pg (25.0-35.0); MCHC 34.2 g/dL (31.0-37.0); MCV 91.3 fL (80.0-100.0); Mean Platelet Volume 7.9; Monocytes # (A) 0.4 k/uL (0-1.0); Monocytes % (A) 4 %; Neutrophils # (A) 7.1 k/uL (1.3-7.7); Neutrophils % (A) 71 %; Platelet Count 281 k/uL (150-450); RBC 5.03 m/uL (3.80-5.40); RDW 12.8 % (11.5-15.5); WBC 10.1 k/uL (3.8-10.6)
[2020-07-11] MEDS ORDERED: HYDROmorphone 1 MG/ML 1 ML SYRINGE IVP STA (03:27)
--- NOTE | 2020-07-11 03:36 | CT ---
EXAM: CT Abdomen and Pelvis With Intravenous Contrast CLINICAL HISTORY: ITS.REASON CT Reason: abdominal pain TECHNIQUE: Axial computed tomography images of the abdomen and pelvis with intravenous contrast. CTDI is 30.37 mGy and DLP is 1276.1 mGy-cm. This CT exam was performed using one or more of the following dose reduction techniques: automated exposure control, adjustment of the mA and/or kV according to patient size, and/or use of iterative reconstruction technique. COMPARISON: No relevant prior studies available. FINDINGS: Lung bases: No mass. No consolidation. ABDOMEN: Liver: Diffusely hypoattenuating liver. No mass. Gallbladder and bile ducts: Unremarkable. No calcified stones. No ductal dilation. Pancreas: Unremarkable. No mass. No ductal dilation. Spleen: Unremarkable. No splenomegaly. Adrenals: Unremarkable. No mass. Kidneys and ureters: 2 mm obstructing right mid-ureteral stone with asymmetrically delayed right nephrogram and mild hydroureteronephrosis. Stomach and bowel: Unremarkable. No obstruction. No mucosal thickening. PELVIS: Appendix: No findings to suggest acute appendicitis. Bladder: Unremarkable. No mass. Reproductive: Unremarkable as visualized. ABDOMEN and PELVIS: Intraperitoneal space: Unremarkable. No free air. No significant fluid collection. Bones/joints: No acute fracture. No dislocation. Soft tissues: Unremarkable. Vasculature: Unremarkable. No abdominal aortic aneurysm. Lymph nodes: Unremarkable. No enlarged lymph nodes. IMPRESSION: 2 mm obstructing right mid-ureteral stone with asymmetrically delayed right nephrogram and mild hydroureteronephrosis.
[2020-07-11 03:42] LABS: Partial Thromboplastin Time 22.5 sec (22.0-30.0); Prothrombin Time 10.4 sec (9.0-12.0)
[2020-07-11 03:47] LABS: ALT 33 U/L (4-34); AST 25 U/L (14-36); African American GFR (CKD) >90 (>60 ml/min/1.73 sqM); Albumin 4.6 g/dL (3.5-5.0); Alkaline Phosphatase 98 U/L (38-126); Amylase 49 U/L (30-110); Anion Gap 10 mmol/L; Blood Urea Nitrogen 16 mg/dL (7-17); Calcium 10.2 mg/dL (8.4-10.2); Carbon Dioxide 22 mmol/L (22-30); Chloride 106 mmol/L (98-107); Glucose 159 mg/dL (74-99); Lipase 82 U/L (23-300); Non-African American GFR(CKD) 78 (>60 ml/min/1.73 sqM); Potassium 4.1 mmol/L (3.5-5.1); Sodium 138 mmol/L (137-145); Total Bilirubin 0.9 mg/dL (0.2-1.3); Total Protein 7.2 g/dL (6.3-8.2)
[2020-07-11] MEDS ORDERED: KETOROLAC 15 MG/ML 1 ML VIAL IVP STA (03:49)
[2020-07-11] MEDS ORDERED: IBUPROFEN 600 MG STARTER PACK 4 TAB BTL PO STA (03:50)
[2020-07-11] MEDS ORDERED: ONDANSETRON 4 MG ODT STARTER PACK 2 TAB BTL PO STA (03:50)
[2020-07-11] MEDS ORDERED: ACET/COD 300 MG/30 MG STARTER PACK 6 TAB BTL PO STA (03:50)
[2020-07-11 04:16] VITALS: BP 136/74; PULSE 58; RESP 16
== END 2020-07-11 04:16 | disposition home or self-care (01) ==
LOC: EC 02:29
DX: N20.2 Calculus of kidney with calculus of ureter (principal); F41.9 Anxiety disorder, unspecified; I10 Essential (primary) hypertension; J45.909 Unspecified asthma, uncomplicated; Z79.1 Long term (current) use of non-steroidal anti-inflammatories (NSAID); Z79.51 Long term (current) use of inhaled steroids; Z85.828 Personal history of other malignant neoplasm of skin
CPT/HCPCS: 36415; 80053; 82150; 83605; 83690; 85025; 85610; 85730; 74177; 99284; 96374; 96375; 96361; J2270; J2405; J1170; J1885; S0119; Q9967

== ENCOUNTER 2020-07-27 11:37 | Day surgery (SDC) | payer OTHER ==
[2020-07-23 13:48] VITALS: BMI 36.6
--- NOTE | 2020-07-26 11:43 | P.HPIHPCON ---
History of Present Illness H&P Date: 07/26/20 Chief Complaint: Right sided ureteral stone 65-year-old female history of a 2 mm right-sided proximal stone. She symptomatic secondary to her stone, she has failed medical expulsive therapy secondary to continued pain. Discussed with her the stone is fairly small chance of spontaneous passages very high, but given her symptoms she went to proceed with surgical intervention. Discussed with her the option of doing a ureteroscopy. Discussed the risk which includes but not limited to bleeding, infection, injury to the ureter. She understood all the risk and agreed to proceed with right-sided ureteroscopy, with holmium laser lithotripsy, stone basketing and stent placement Consent for Procedure: I have explained the operation/procedure to the patient, including the risks, benefits, side effects, alternative therapies (including not receiving the proposed treatment or service), the likelihood of the patient achieving his/her goals, and potential recuperation problems for the procedure/sedation/analgesia, as well as any blood products, if indicated. I also explained to the patient the risks, benefits and side effects of the alternatives, as well as the risks related to not receiving the proposed procedure, care, treatment, or services. Past Medical History Past Medical History: Asthma, Cancer Additional Past Medical History / Comment(s): Current right kidney stone. HX SKIN CANCER X2 01/2020 and in 2009, HERNIATED DISCS, BACK PAIN. History of Any Multi-Drug Resistant Organisms: None Reported Past Surgical History: Cholecystectomy, Hysterectomy, Tubal Ligation Additional Past Surgical History / Comment(s): Skin cancer removed from face and bilateral shoulders. Past Anesthesia/Blood Transfusion Reactions: Motion Sickness, Postoperative Nausea & Vomiting (PONV) Additional Past Anesthesia/Blood Transfusion Reaction / Comment(s): Slow to come out of anesthesia. Past Psychological History: ADD/ADHD, Anxiety Smoking Status: Former smoker Past Alcohol Use History: Occasional Additional Past Alcohol Use History / Comment(s): QUIT SMOKING 5 YEARS AGO, SMOKED 1 PPD XAPPROX 25 YRS. Past Drug Use History: None Reported - Past Family History Mother Family Medical History: No Reported History Father Family Medical History: Cancer Additional Family Medical History / Comment(s): PROSTATE CANCER. Medications and Allergies Home Medications Medication Instructions Recorded Confirmed Type Albuterol Inhaler (Mhu) [Ventolin 1 - 2 puff INHALATION RT-Q6H PRN 07/22/16 07/23/20 History Hfa Inhaler] Budesonide-Formot 160-4.5 Mcg 1 - 2 puff INHALATION RT-BID PRN 07/22/16 07/23/20 History [Symbicort 160-4.5 Mcg Inhaler] ALPRAZolam [Xanax] 0.25 mg PO DAILY PRN 07/23/20 07/23/20 History Escitalopram [Lexapro] 10 mg PO HS 07/23/20 07/23/20 History Ibuprofen [Motrin] 800 mg PO Q8H PRN 07/23/20 07/23/20 History Ketorolac [Toradol] 10 mg PO Q6HR PRN 07/23/20 07/23/20 History Ondansetron [Zofran] 4 mg PO Q8HR PRN 07/23/20 07/23/20 History Allergies Allergy/AdvReac Type Severity Reaction Status Date / Time [id number] Reductase Allergy leg pain Verified 07/23/20 13:33 Inhibitor Surgical - Exam - General no distress, moderate pain - Eyes PERRL, normal ocular movement - ENT normal nares, normal mucosa Assessment and Plan Assessment: 55-year-old female history of right-sided ureteral stone -Or for right-sided ureteroscopy, holmium laser lithotripsy, stone basketing and stent placement
[~2020-07-27 11:37] MED LIST changes: -DEXAMETHASONE SOD PHOSPHATE 10 MG/ML 1 ML VIAL IV ONE; +LACTATED RINGERS 1,000 ML IV SCH; -LIDOCAINE 1% 20 ML VIAL (10MG/ML) FOR IV START INTRADERMA PRN; -MIDAZOLAM 2 MG/2 ML VIAL IV PRN; -ONDANSETRON 4 MG/2 ML VIAL IVP PRN; -SCOPOLAMINE 1.5MG/72HR PATCH TRANSDERM ONE; -ceFAZolin 2 GM in SODIUM CHLORIDE 0.9% 100 ML IVPB ONE; +fentaNYL (PF) 50 MCG/ML 2 ML AMP IV PRN
[2020-07-27 12:09] VITALS: RESP 16
[2020-07-27] MEDS ORDERED: LIDOCAINE 1% (10MG/ML) FOR IV START INTRADERMA ONE (12:19)
[2020-07-27] MEDS ORDERED: DEXAMETHASONE SOD PHOSPHATE 4 MG/ML 1 ML VIAL IV ONE (12:25)
[2020-07-27] MEDS ORDERED: SCOPOLAMINE 1.5MG/72HR PATCH TRANSDERM ONE (12:27)
[2020-07-27] MEDS ORDERED: LACTATED RINGERS 1,000 ML IV ONE (15:08)
--- NOTE | 2020-07-27 15:34 | P.OP ---
Date of Procedure: 07/27/20 Preoperative Diagnosis: Right ureteral stone Postoperative Diagnosis: Same Procedure(s) Performed: Cystoscopy, right ureteroscopy, holmium laser lithotripsy, stone basketing and stent placement Implants: 6-Chilean by 24 cm stent Anesthesia: LILIANA Surgeon: Roque Marmolejo Estimated Blood Loss (ml): 1 Pathology: other (right ureteral stone) Condition: stable Disposition: PACU Indications for Procedure: 65-year-old female history of a 2 mm right-sided proximal stone. She symptomatic secondary to her stone, she has failed medical expulsive therapy secondary to continued pain. Discussed with her the stone is fairly small chance of spontaneous passages very high, but given her symptoms she went to proceed with surgical intervention. Discussed with her the option of doing a ureteroscopy. Discussed the risk which includes but not limited to bleeding, infection, injury to the ureter. She understood all the risk and agreed to proceed with right-sided ureteroscopy, with holmium laser lithotripsy, stone basketing and stent placement Operative Findings: Right distal ureteral stone Description of Procedure: Patient was brought to the operating room, general anesthesia was induced. She was prepped and draped in sterile fashion and placed in dorsal lithotomy position. Cystoscopy fitted with a 21-[place]an sheath was inserted per urethra, cystoscopy was performed which showed no abnormality within the bladder. Attention was then carried to the right ureteral orifice which was intubated with a sensor wire. The cystoscope was withdrawn and a semirigid ureteroscope was inserted. The semirigid ureteroscope was advanced through the right ureteral orifice, the stone was seen in the distal ureter, the stone was impacted and there was significant ureteral edema, in addition patient had a narrowed distal ureter. Using the holmium laser the stone was fragmented into smaller fragments, the fragments were removed and sent to pathology . At this time the ureteroscope was reinserted and advanced all the way up to the UPJ, no additional fragments or injury to the ureter was seen, pullback ureteroscopy showed normal ureter, but of note there was significant edema in the distal ureter. At this time a sensor wire was advanced through the ureteroscope and the ureteroscope was withdrawn with the wire in place. Next a flexibile ureteroscope was passed over the wire and into the kidney. Renoscopy was performed to ensure no fragments have migrated up, and renoscopy showed no additional stones or abnormality within the kidney. Pullback ureteroscopy showed no injury to the ureter or any ureteral fragments. Next ureteral stent was passed over the wire, the proximal curl was visualized on fluoroscopy and distal curl was visualized using cystoscope. Patient tolerated procedure well was taken to PACU in stable condition
[2020-07-27 15:50] VITALS: TEMP 97.6
[2020-07-27] MEDS: HYDROmorphone 0.5 MG/0.5 ML SYRINGE IVP PRN ×2 (16:05→16:10)
--- NOTE | 2020-07-27 16:12 | FL ---
EXAMINATION TYPE: FL guidance operating room DATE OF EXAM: 07/27/2020 FLUOROSCOPY Fluoroscopy time of 3 seconds was used during right lithotripsy and stent placement. 1 image/s docum ent/s the procedure.
[2020-07-27] MEDS ORDERED: ONDANSETRON 4 MG/2 ML VIAL ONE (16:30)
[2020-07-27] MEDS ORDERED: ONDANSETRON 4 MG/2 ML VIAL IVP ONE (16:31)
[2020-07-27 16:43] VITALS: BP 121/75; PULSE 76
== END 2020-07-27 17:15 | disposition home or self-care (01) ==
LOC: OR 11:37
PROVIDERS: ATTEND Urology
DX: N20.1 Calculus of ureter (principal); J45.909 Unspecified asthma, uncomplicated; Z85.828 Personal history of other malignant neoplasm of skin; Z90.49 Acquired absence of other specified parts of digestive tract; Z90.710 Acquired absence of both cervix and uterus; Z98.51 Tubal ligation status; Z98.890 Other specified postprocedural states; F41.9 Anxiety disorder, unspecified; Z87.891 Personal history of nicotine dependence; Z80.42 Family history of malignant neoplasm of prostate; Z79.1 Long term (current) use of non-steroidal anti-inflammatories (NSAID); Z79.51 Long term (current) use of inhaled steroids; Z79.899 Other long term (current) drug therapy; Z88.8 Allergy status to other drugs, medicaments and biological substances
CPT/HCPCS: 82365; 52356; C2625; C1769; J1100; J0690; J2405; J1170

== ENCOUNTER 2020-11-19 04:24 | Emergency (ER) | payer OTHER ==
[2020-11-19] MEDS ORDERED: ONDANSETRON 4 MG/2 ML VIAL IVP STA (04:48)
[2020-11-19] MEDS ORDERED: HYDROmorphone 0.5 MG/0.5 ML SYRINGE IVP STA ×2 (04:48→06:20)
[2020-11-19] MEDS ORDERED: KETOROLAC 15 MG/ML 1 ML VIAL IVP STA (04:48)
--- NOTE | 2020-11-19 04:50 | ED ---
Abdominal Pain HPI - General Chief Complaint: Abdominal Pain Stated Complaint: Abd Pain,Vomiting Time Seen by Provider: 11/19/20 04:41 Source: patient Mode of arrival: ambulatory Limitations: no limitations - History of Present Illness MD Complaint: flank pain Onset/Timin -: hour(s) Location: R flank Radiation: none Migration to: no migration Severity: severe Quality: sharp Consistency: constant Improves With: nothing Worsens With: nothing Associated Symptoms: nausea, vomiting - Related Data Home Medications Medication Instructions Recorded Confirmed Budesonide-Formot 160-4.5 Mcg 1 - 2 puff INHALATION RT-BID PRN 07/22/16 07/27/20 [Symbicort 160-4.5 Mcg Inhaler] ALPRAZolam [Xanax] 0.25 mg PO DAILY PRN 07/23/20 07/27/20 Ibuprofen [Motrin] 800 mg PO Q8H PRN 07/23/20 07/27/20 Acetaminophen Tab [Tylenol Tab] 1,000 mg PO Q6HR PRN 11/19/20 11/19/20 Albuterol Sulfate [Ventolin HFA] 2 puff INHALATION RT-QID PRN 11/19/20 11/19/20 Escitalopram [Lexapro] 20 mg PO DAILY 11/19/20 11/19/20 Previous Rx's Medication Instructions Recorded Famotidine [Pepcid] 20 mg PO BID #14 tablet 11/19/20 HYDROcodone/APAP 5-325MG [[place] 1 tab PO Q4HR PRN 3 Days #18 tab 11/19/20 5-325] Ondansetron Odt [Zofran ODT] 4 mg PO Q8HR PRN #10 tab 11/19/20 Tamsulosin [Flomax] 0.4 mg PO DAILY #14 cap 11/19/20 Allergies Allergy/AdvReac Type Severity Reaction Status Date / Time [id number] Reductase Allergy leg pain Verified 11/19/20 07:14 Inhibitor Review of Systems ROS Statement: Those systems with pertinent positive or pertinent negative responses have been documented in the HPI. ROS Other: All systems not noted in ROS Statement are negative. Constitutional: Denies: fever, chills Respiratory: Denies: cough, dyspnea Cardiovascular: Denies: chest pain, palpitations Gastrointestinal: Reports: as per HPI, abdominal pain, nausea, vomiting. Denies: diarrhea, constipation, melena, hematochezia Genitourinary: Denies: dysuria, frequency, hematuria Musculoskeletal: Denies: back pain Skin: Denies: rash Neurological: Denies: headache, weakness Past Medical History Past Medical History: Asthma, Cancer Additional Past Medical History / Comment(s): Current right kidney stone. HX SKIN CANCER X2 01/2020 and in 2009, HERNIATED DISCS, BACK PAIN. History of Any Multi-Drug Resistant Organisms: None Reported Past Surgical History: Cholecystectomy, Hysterectomy, Tubal Ligation Additional Past Surgical History / Comment(s): Skin cancer removed from face and bilateral shoulders. Past Anesthesia/Blood Transfusion Reactions: Motion Sickness, Postoperative Nausea & Vomiting (PONV) Additional Past Anesthesia/Blood Transfusion Reaction / Comment(s): Slow to come out of anesthesia. Past Psychological History: ADD/ADHD, Anxiety Smoking Status: Former smoker Past Alcohol Use History: Occasional Past Drug Use History: None Reported - Past Family History Mother Family Medical History: No Reported History Father Family Medical History: Cancer Additional Family Medical History / Comment(s): PROSTATE CANCER. General Exam Limitations: no limitations General appearance: alert, in no apparent distress Head exam: Present: atraumatic, normocephalic Eye exam: Present: normal appearance. Absent: scleral icterus, conjunctival injection ENT exam: Present: normal oropharynx Neck exam: Present: normal inspection Respiratory exam: Present: normal lung sounds bilaterally. Absent: respiratory distress, wheezes, rales, rhonchi, stridor Cardiovascular Exam: Present: regular rate, normal rhythm, normal heart sounds. Absent: systolic murmur, diastolic murmur, rubs, gallop GI/Abdominal exam: Present: soft, tenderness. Absent: distended, guarding, rebound, rigid, mass, pulsatile mass, hernia Extremities exam: Present: normal inspection, normal capillary refill. Absent: pedal edema, calf tenderness Back exam: Present: normal inspection, CVA tenderness (R). Absent: CVA tenderness (L) Neurological exam: Present: alert Skin exam: Present: warm, dry, intact, normal color. Absent: rash Course Vital Signs 11/19/20 11/19/20 11/19/20 04:25 04:48 06:10 Temperature 97.6 F 97.8 F Pulse Rate 67 52 L Respiratory 26 H 16 Rate Blood Pressure 166/80 131/79 O2 Sat by Pulse 97 92 L Oximetry Medical Decision Making - Lab Data Result diagrams: 11/19/20 04:43 11/19/20 04:43 Lab Results 11/19/20 11/19/20 11/19/20 Range/Units 04:43 04:43 04:43 WBC 12.5 H (3.8-10.6) k/uL RBC 4.41 (3.80-5.40) m/uL Hgb 14.1 (11.4-16.0) gm/dL Hct 41.7 (34.0-46.0) % MCV 94.6 (80.0-100.0) fL MCH 31.9 (25.0-35.0) pg MCHC 33.7 (31.0-37.0) g/dL RDW 13.4 (11.5-15.5) % Plt Count 296 (150-450) k/uL MPV 7.7 Neutrophils % 76 % Lymphocytes % 16 % Monocytes % 4 % Eosinophils % 3 % Basophils % 0 % Neutrophils # 9.5 H (1.3-7.7) k/uL Lymphocytes # 1.9 (1.0-4.8) k/uL Monocytes # 0.5 (0-1.0) k/uL Eosinophils # 0.3 (0-0.7) k/uL Basophils # 0.1 (0-0.2) k/uL Sodium 141 (137-145) mmol/L Potassium 4.1 (3.5-5.1) mmol/L Chloride 111 H (98-107) mmol/L Carbon Dioxide 21 L (22-30) mmol/L Anion Gap 9 mmol/L BUN 14 (7-17) mg/dL Creatinine 0.67 (0.52-1.04) mg/dL Est GFR (CKD-EPI)AfAm >90 (>60 ml/min/1.73 sqM) Est GFR (CKD-EPI)NonAf >90 (>60 ml/min/1.73 sqM) Glucose 152 H (74-99) mg/dL Plasma Lactic Acid Glenn 1.3 (0.7-2.0) mmol/L Calcium 9.6 (8.4-10.2) mg/dL Total Bilirubin 0.6 (0.2-1.3) mg/dL AST 24 (14-36) U/L ALT 22 (4-34) U/L Alkaline Phosphatase 107 (38-126) U/L Total Protein 6.7 (6.3-8.2) g/dL Albumin 4.3 (3.5-5.0) g/dL Amylase 59 (30-110) U/L Lipase 105 (23-300) U/L Urine Color Urine Appearance (Clear) Urine pH (5.0-8.0) Ur Specific [place] (1.001-1.035) Urine Protein (Negative) Urine Glucose (UA) (Negative) Urine Ketones (Negative) Urine Blood (Negative) Urine Nitrite (Negative) Urine Bilirubin (Negative) Urine Urobilinogen (<2.0) mg/dL Ur Leukocyte Esterase (Negative) Urine RBC (0-5) /hpf Urine WBC (0-5) /hpf Ur Squamous Epith Cells (0-4) /hpf Calcium Oxalate Crystal (None) /hpf Urine Mucus (None) /hpf 11/19/20 Range/Units 05:54 WBC (3.8-10.6) k/uL RBC (3.80-5.40) m/uL Hgb (11.4-16.0) gm/dL Hct (34.0-46.0) % MCV (80.0-100.0) fL MCH (25.0-35.0) pg MCHC (31.0-37.0) g/dL RDW (11.5-15.5) % Plt Count (150-450) k/uL MPV Neutrophils % % Lymphocytes % % Monocytes % % Eosinophils % % Basophils % % Neutrophils # (1.3-7.7) k/uL Lymphocytes # (1.0-4.8) k/uL Monocytes # (0-1.0) k/uL Eosinophils # (0-0.7) k/uL Basophils # (0-0.2) k/uL Sodium (137-145) mmol/L Potassium (3.5-5.1) mmol/L Chloride (98-107) mmol/L Carbon Dioxide (22-30) mmol/L Anion Gap mmol/L BUN (7-17) mg/dL Creatinine (0.52-1.04) mg/dL Est GFR (CKD-EPI)AfAm (>60 ml/min/1.73 sqM) Est GFR (CKD-EPI)NonAf (>60 ml/min/1.73 sqM) Glucose (74-99) mg/dL Plasma Lactic Acid Glenn (0.7-2.0) mmol/L Calcium (8.4-10.2) mg/dL Total Bilirubin (0.2-1.3) mg/dL AST (14-36) U/L ALT (4-34) U/L Alkaline Phosphatase (38-126) U/L Total Protein (6.3-8.2) g/dL Albumin (3.5-5.0) g/dL Amylase (30-110) U/L Lipase (23-300) U/L Urine Color Light Red Urine Appearance Turbid H (Clear) Urine pH 5.5 (5.0-8.0) Ur Specific [place] 1.030 (1.001-1.035) Urine Protein 1+ H (Negative) Urine Glucose (UA) Negative (Negative) Urine Ketones 1+ H (Negative) Urine Blood Large H (Negative) Urine Nitrite Negative (Negative) Urine Bilirubin Negative (Negative) Urine Urobilinogen 2.0 (<2.0) mg/dL Ur Leukocyte Esterase Negative (Negative) Urine RBC >182 H (0-5) /hpf Urine WBC 2 (0-5) /hpf Ur Squamous Epith Cells 1 (0-4) /hpf Calcium Oxalate Crystal Many H (None) /hpf Urine Mucus Many H (None) /hpf Disposition Clinical Impression: Calculus of kidney Disposition: HOME SELF-CARE Condition: Good Instructions (If sedation given, give patient instructions): Kidney Stones (ED) Prescriptions: Tamsulosin [Flomax] 0.4 mg PO DAILY #14 cap HYDROcodone/APAP 5-325MG [[place] 5-325] 1 tab PO Q4HR PRN 3 Days #18 tab PRN Reason: Pain Famotidine [Pepcid] 20 mg PO BID #14 tablet Ondansetron Odt [Zofran ODT] 4 mg PO Q8HR PRN #10 tab PRN Reason: Nausea Is patient prescribed a controlled substance at d/c from ED?: Yes When asked, does pt state using other controlled substances?: No If prescribed controlled substance>3 days was MAPS reviewed?: Prescribed <3 Days If opioid is for acute pain is fill amount 7 days or less?: Yes If Rx opioid, was Start Talking consent form obtained?: Yes Referrals: Babatunde Conde DO [Primary Care Provider] - 1-2 days Roque Marmolejo MD [STAFF PHYSICIAN] - 1-2 days
[2020-11-19 05:39] LABS: Basophils # (A) 0.1 k/uL (0-0.2); Basophils % (A) 0 %; Eosinophils # (A) 0.3 k/uL (0-0.7); Eosinophils % (A) 3 %; HCT 41.7 % (34.0-46.0); HGB 14.1 gm/dL (11.4-16.0); Lymphocytes # (A) 1.9 k/uL (1.0-4.8); Lymphocytes % (A) 16 %; MCH 31.9 pg (25.0-35.0); MCHC 33.7 g/dL (31.0-37.0); MCV 94.6 fL (80.0-100.0); Mean Platelet Volume 7.7; Monocytes # (A) 0.5 k/uL (0-1.0); Monocytes % (A) 4 %; Neutrophils # (A) 9.5 k/uL (1.3-7.7); Neutrophils % (A) 76 %; Platelet Count 296 k/uL (150-450); RBC 4.41 m/uL (3.80-5.40); RDW 13.4 % (11.5-15.5); WBC 12.5 k/uL (3.8-10.6)
--- NOTE | 2020-11-19 05:49 | CT ---
EXAMINATION TYPE: CT abdomen pelvis wo con DATE OF EXAM: 11/19/2020 COMPARISON: 07/11/2020 HISTORY: right flank/abdomen pain. history of kidney stones CT DLP: 710.6 mGycm Automated exposure control for dose reduction was used. Images obtained from the diaphragm to the floor the pelvis with no contrast. There is mild subsegmental atelectasis at the lung bases. Heart size is fairly normal. There is no pe ricardial effusion. There is no pleural effusion. Liver spleen stomach pancreas appear intact. The bile ducts are not dilated. There are clips from cho lecystectomy. There is no adrenal mass. There is some enlargement of the right kidney without hydronephrosis. There is proximal right-sided hydroureter. There is 1 mm calculus in the proximal right ureter. The bladde r distends smoothly. There is no inguinal hernia. There is no free fluid in the pelvis. There is no p elvic mass. There is hysterectomy. Lumbar vertebra have fairly normal spacing and alignment. Posterior elements are intact. There is no compression fracture. The bony pelvis is intact. The hip joints appear normal. There is surgical clip lateral to the cecum. The appendix is posterior and appears normal. The termin al ileum appears normal. IMPRESSION: There is right-sided hydronephrosis and proximal hydroureter. There is tiny obstructing calculus in t he proximal right ureter. Obstruction appears similar to the old exam. Calculus has same size and has not moved to any extent compared to the old exam. Hydronephrosis appears slightly worse.
[2020-11-19] MEDS ORDERED: TAMSULOSIN 0.4 MG CAP.ER.24H PO STA (06:00)
[2020-11-19 06:06] LABS: ALT 22 U/L (4-34); AST 24 U/L (14-36); African American GFR (CKD) >90 (>60 ml/min/1.73 sqM); Albumin 4.3 g/dL (3.5-5.0); Alkaline Phosphatase 107 U/L (38-126); Amylase 59 U/L (30-110); Anion Gap 9 mmol/L; Blood Urea Nitrogen 14 mg/dL (7-17); Calcium 9.6 mg/dL (8.4-10.2); Carbon Dioxide 21 mmol/L (22-30); Chloride 111 mmol/L (98-107); Glucose 152 mg/dL (74-99); Lipase 105 U/L (23-300); Non-African American GFR(CKD) >90 (>60 ml/min/1.73 sqM); Potassium 4.1 mmol/L (3.5-5.1); Sodium 141 mmol/L (137-145); Total Bilirubin 0.6 mg/dL (0.2-1.3); Total Protein 6.7 g/dL (6.3-8.2)
[2020-11-19 06:31] LABS: Appearance,Urine Turbid (Clear); Bilirubin,Urine Negative (Negative); Blood,Urine Large (Negative); Calcium Oxalate Crystals,Urine Many /hpf; Color,Urine Light Red; Glucose,Urine (UA) Negative (Negative); Ketones,Urine 1+ (Negative); Leukocyte Esterase,Urine Negative (Negative); Mucus,Urine Many /hpf; Nitrite,Urine Negative (Negative); PH, Urine 5.5 (5.0-8.0); Protein,Urine 1+ (Negative); RBC,Urine >182 /hpf (0-5); Squamous Epithelial Cell,Urine 1 /hpf (0-4); WBC,Urine 2 /hpf (0-5)
[2020-11-19 07:29] VITALS: BP 133/75; PULSE 73; RESP 18; TEMP 97.3
== END 2020-11-19 07:33 | disposition home or self-care (01) ==
LOC: EC 04:24
DX: N13.2 Hydronephrosis with renal and ureteral calculous obstruction (principal); J45.909 Unspecified asthma, uncomplicated; Z87.891 Personal history of nicotine dependence; Z88.8 Allergy status to other drugs, medicaments and biological substances
CPT/HCPCS: 36415; 80053; 82150; 83605; 83690; 85025; 81001; 74176; 99284; 96374; 96375; 96376; J2405; J1885; J1170

== ENCOUNTER 2020-12-11 16:31 | Observation (INO) | payer OTHER ==
[2020-12-11] MEDS ORDERED: SODIUM CHLORIDE 0.9% 1,000 ML IV STA (17:00)
[2020-12-11] MEDS ORDERED: NALOXONE 0.4 MG/ML 1 ML VIAL IVP STA (17:07)
[2020-12-11] MEDS ORDERED: ONDANSETRON 4 MG/2 ML VIAL IVP STA (17:07)
[2020-12-11 17:35] LABS: Basophils # (A) 0.1 k/uL (0-0.2); Basophils % (A) 1 %; Eosinophils # (A) 0.2 k/uL (0-0.7); Eosinophils % (A) 2 %; HCT 45.4 % (34.0-46.0); HGB 15.6 gm/dL (11.4-16.0); Lymphocytes # (A) 1.9 k/uL (1.0-4.8); Lymphocytes % (A) 18 %; MCH 32.8 pg (25.0-35.0); MCHC 34.3 g/dL (31.0-37.0); MCV 95.6 fL (80.0-100.0); Mean Platelet Volume 7.9; Monocytes # (A) 0.5 k/uL (0-1.0); Monocytes % (A) 5 %; Neutrophils # (A) 7.8 k/uL (1.3-7.7); Neutrophils % (A) 73 %; Platelet Count 310 k/uL (150-450); RBC 4.75 m/uL (3.80-5.40); RDW 12.9 % (11.5-15.5); WBC 10.6 k/uL (3.8-10.6)
[2020-12-11 17:48] LABS: ALT 28 U/L (4-34); AST 33 U/L (14-36); Acetaminophen <10.0 ug/mL; African American GFR (CKD) >90 (>60 ml/min/1.73 sqM); Albumin 4.8 g/dL (3.5-5.0); Alcohol <10 mg/dL; Alkaline Phosphatase 111 U/L (38-126); Anion Gap 11 mmol/L; Blood Urea Nitrogen 14 mg/dL (7-17); Carbon Dioxide 20 mmol/L (22-30); Chloride 108 mmol/L (98-107); Glucose 102 mg/dL (74-99); Lipase 100 U/L (23-300); Non-African American GFR(CKD) >90 (>60 ml/min/1.73 sqM); Potassium 4.3 mmol/L (3.5-5.1); Salicylate <1.0 mg/dL; Sodium 139 mmol/L (137-145); Total Bilirubin 0.6 mg/dL (0.2-1.3); Total Protein 7.4 g/dL (6.3-8.2)
[2020-12-11 17:54] LABS: INR 0.9 (<1.2); Prothrombin Time 9.8 sec (9.0-12.0)
--- NOTE | 2020-12-11 17:55 | XR ---
EXAMINATION TYPE: XR chest 1V portable DATE OF EXAM: 12/11/2020 COMPARISON: 10/01/2017 HISTORY: Short of breath TECHNIQUE: FINDINGS: Heart is normal. There is some infiltrate and atelectasis in both lower lobes. This is more on the right side. There is no heart failure. There are no hilar masses. There are chest leads. IMPRESSION: Basilar pulmonary infiltrates and atelectasis is unchanged on the left side but increased on the right side compared to old exam.
[2020-12-11 18:02] LABS: Appearance,Urine Clear (Clear); Bilirubin,Urine Negative (Negative); Blood,Urine Negative (Negative); Color,Urine Yellow; Glucose,Urine (UA) Negative (Negative); Ketones,Urine Negative (Negative); Leukocyte Esterase,Urine Negative (Negative); Nitrite,Urine Negative (Negative); PH, Urine 5.5 (5.0-8.0); Protein,Urine Negative (Negative); Urobilinogen,Urine <2.0 mg/dL (<2.0)
[2020-12-11 18:14] LABS: Cocaine Screen,Urine Not Detected (NotDetected); Opiate Screen,Urine Detected (NotDetected); Phencyclidine Screen,Urine Not Detected (NotDetected); Urn Cannabinoid Scrn Detected (NotDetected)
[2020-12-11 18:15] LABS: Amphetamine Screen,Urine Not Detected (NotDetected); Barbiturate Screen,Urine Not Detected (NotDetected); Benzodiazepines Screen,Urine Detected (NotDetected); Methadone Screen, Urine Not Detected (NotDetected); Oxycodone Screen, Urine Detected (NotDetected); Tricyclic Antidepressant,Urine Not Detected (NotDetected)
[2020-12-11] MEDS ORDERED: NALOXONE 0.4 MG/ML 1 ML VIAL IV PRN (19:16)
--- NOTE | 2020-12-11 22:44 | ED ---
General Adult HPI - General Chief complaint: Overdose Stated complaint: Overdose Time Seen by Provider: 12/11/20 16:46 Source: patient, family, RN notes reviewed, old records reviewed Mode of arrival: wheelchair Limitations: altered mental status - History of Present Illness Initial comments: Patient is a 55-year-old female with past medical history remarkable for asthma, kidney stone, back pain, skin cancer, herniated disks presents emergency Departm ent following an overdose. Patient presents approximately one half hours after taking multiple pain medications at home. Patient states she took approximately 5 pills each of [place] 5) Percocet, gabapentin, Lexapro, Xanax. She said "I'm sick of the pain." She does not respond blood or not she has been having suicidal ideations. She denies any homicidal ideations, attempts complaints. She denies any visual or auditory hallucinations. Denies any other acute complaints at this time. Denies any chest pain, shortness breath, abdominal pain, nausea, vomiting, fevers, chills, cough. Patient is brought by family members over concern for overdose. - Related Data Home Medications Medication Instructions Recorded Confirmed Budesonide-Formot 160-4.5 Mcg 1 - 2 puff INHALATION RT-BID PRN 07/22/16 12/11/20 [Symbicort 160-4.5 Mcg Inhaler] ALPRAZolam [Xanax] 0.25 mg PO DAILY PRN 07/23/20 12/11/20 Albuterol Sulfate [Ventolin HFA] 2 puff INHALATION RT-QID PRN 11/19/20 12/11/20 Escitalopram [Lexapro] 20 mg PO DAILY 11/19/20 12/11/20 Tamsulosin [Flomax] 0.4 mg PO HS 12/11/20 12/11/20 Previous Rx's Medication Instructions Recorded Famotidine [Pepcid] 20 mg PO BID #14 tablet 11/19/20 HYDROcodone/APAP 5-325MG [[place] 1 tab PO Q4HR PRN 3 Days #18 tab 11/19/20 5-325] Ondansetron Odt [Zofran ODT] 4 mg PO Q8HR PRN #10 tab 11/19/20 Allergies Allergy/AdvReac Type Severity Reaction Status Date / Time [id number] Reductase Allergy leg pain Verified 12/11/20 16:44 Inhibitor Review of Systems ROS Statement: Those systems with pertinent positive or pertinent negative responses have been documented in the HPI. Review of Systems: CONST: Denies fever EYES: Denies blurry vision ENT: Denies nasal congestion C/V: Denies Chest pain RESP: Denies shortness of breath GI: Currently kidney stone abdominal pain. : Denies dysuria SKIN: Denies rash. MSK: Chronic back pain NEURO: Denies headache ROS Other: All systems not noted in ROS Statement are negative. Past Medical History Past Medical History: Asthma, Cancer Additional Past Medical History / Comment(s): Current right kidney stone. HX SKIN CANCER X2 01/2020 and in 2009, HERNIATED DISCS, BACK PAIN. History of Any Multi-Drug Resistant Organisms: None Reported Past Surgical History: Cholecystectomy, Hysterectomy, Tubal Ligation Additional Past Surgical History / Comment(s): Skin cancer removed from face and bilateral shoulders. Past Anesthesia/Blood Transfusion Reactions: Motion Sickness, Postoperative Nausea & Vomiting (PONV) Additional Past Anesthesia/Blood Transfusion Reaction / Comment(s): Slow to come out of anesthesia. Past Psychological History: ADD/ADHD, Anxiety Smoking Status: Former smoker Past Alcohol Use History: Occasional Past Drug Use History: None Reported - Past Family History Mother Family Medical History: No Reported History Father Family Medical History: Cancer Additional Family Medical History / Comment(s): PROSTATE CANCER. General Exam - General Exam Comments Initial Comments: General: Appears in no acute distress. HEAD: Normal with no signs of head trauma. EYES: PERRLA, EOMI, conjunctiva normal, no discharge. Pupils are 1 mm and numbly reactive to light. ENT: Hearing grossly intact, normal oropharynx. RESPIRATORY: Clear breath sounds bilaterally. No wheezes, rales, or rhonchi. Patient was mildly hypoxic in triage. C/V: Regular rate and rhythm. S1 and S2 auscultated, no edema, peripheral p ulses 2+ and intact throughout ABD: Abd is soft, nontender, nondistended EXT: Normal range of motion, no obvious deformity SKIN: No rashes or lesions observed on exposed skin. NEURO: Alert and oriented x 4. Cranial nerves II-XII intact. No focal sensory or strength deficits. Limitations: altered mental status Course Vital Signs 12/11/20 12/11/20 12/11/20 16:37 17:27 17:45 Temperature 98.9 F Pulse Rate 77 62 Respiratory 16 12 18 Rate Blood Pressure 146/78 121/73 O2 Sat by Pulse 91 L 97 Oximetry 12/11/20 19:25 Temperature Pulse Rate 62 Respiratory 18 Rate Blood Pressure 116/70 O2 Sat by Pulse 96 Oximetry Medical Decision Making - Medical Decision Making Based on the patient's presentation and physical exam, do believe she is having an acute overdose, polysubstance. She is actively responding to questioning and mental status is not depressed at this time. She does have pinpoint pupils as well as mild hypoxia, and therefore she'll be administered 2 mg of IV Narcan additional 4 mg of IV Zofran. Overdose workup will be obtained including tox workup, urinalysis, basic laboratory studies, troponin. EKG and chest x-ray will also be obtained. She'll be connected to continuous cardiac monitoring while she is here in the department. She was in agreement with this plan. Following administration Narcan, patient's hypoxia did resolve, and is now satting 95-96% and she is more alert at this time. Patient's chest x-ray revealed no acute cardiopulmonary process but did reveal chronic basilar atelectasis. EKG showed no signs of acute ischemia at this time. Trace studies were remarkable for a negative troponin. Bicarb was mildly decreased at 20. Tox workup it was positive for opiates, benzos, marijuana. Is negative for salicylates. Was negative for Tylenol. On reevaluation, patient remains stable at this time. Vital signs have remained stable. I did discuss with family of the patient as well as the patient that she will be admitted to the hospital for further observation. We did speak with poison control over the phone, who recommended 6 hour observation. Therefore patient will be admitted for 6 hour observation with subsequent evaluation by psychiatry. The patient was in agreement this plan. I spoke with the admitting physician, Babatunde Conde, who accepted the admission. Consult was placed to psychiatry, Dr. Rehman. Suicide precautions as well as a one-to-one sitter were ordered for the patient. Patient was therefore admitted in stable condition. - Lab Data Result diagrams: 12/11/20 17:12 12/11/20 17:12 Lab Results 12/11/20 12/11/20 12/11/20 Range/Units 17:12 17:12 17:12 WBC 10.6 (3.8-10.6) k/uL RBC 4.75 (3.80-5.40) m/uL Hgb 15.6 (11.4-16.0) gm/dL Hct 45.4 (34.0-46.0) % MCV 95.6 (80.0-100.0) fL MCH 32.8 (25.0-35.0) pg MCHC 34.3 (31.0-37.0) g/dL RDW 12.9 (11.5-15.5) % Plt Count 310 (150-450) k/uL MPV 7.9 Neutrophils % 73 % Lymphocytes % 18 % Monocytes % 5 % Eosinophils % 2 % Basophils % 1 % Neutrophils # 7.8 H (1.3-7.7) k/uL Lymphocytes # 1.9 (1.0-4.8) k/uL Monocytes # 0.5 (0-1.0) k/uL Eosinophils # 0.2 (0-0.7) k/uL Basophils # 0.1 (0-0.2) k/uL PT 9.8 (9.0-12.0) sec INR 0.9 (<1.2) Sodium (137-145) mmol/L Potassium (3.5-5.1) mmol/L Chloride (98-107) mmol/L Carbon Dioxide (22-30) mmol/L Anion Gap mmol/L BUN (7-17) mg/dL Creatinine (0.52-1.04) mg/dL Est GFR (CKD-EPI)AfAm (>60 ml/min/1.73 sqM) Est GFR (CKD-EPI)NonAf (>60 ml/min/1.73 sqM) Glucose (74-99) mg/dL Calcium (8.4-10.2) mg/dL Total Bilirubin (0.2-1.3) mg/dL AST (14-36) U/L ALT (4-34) U/L Alkaline Phosphatase (38-126) U/L Troponin I (0.000-0.034) ng/mL Total Protein (6.3-8.2) g/dL Albumin (3.5-5.0) g/dL Lipase (23-300) U/L Urine Color Yellow Urine Appearance Clear (Clear) Urine pH 5.5 (5.0-8.0) Ur Specific [place] 1.020 (1.001-1.035) Urine Protein Negative (Negative) Urine Glucose (UA) Negative (Negative) Urine Ketones Negative (Negative) Urine Blood Negative (Negative) Urine Nitrite Negative (Negative) Urine Bilirubin Negative (Negative) Urine Urobilinogen <2.0 (<2.0) mg/dL Ur Leukocyte Esterase Negative (Negative) Urine HCG, Qual (Not Detectd) Salicylates mg/dL Urine Opiates Screen Detected H (NotDetected) Ur Oxycodone Screen Detected H (NotDetected) Urine Methadone Screen Not Detected (NotDetected) Ur Propoxyphene Screen Not Detected (NotDetected) Acetaminophen ug/mL Ur Barbiturates Screen Not Detected (NotDetected) U Tricyclic Antidepress Not Detected (NotDetected) Ur Phencyclidine Scrn Not Detected (NotDetected) Ur Amphetamines Screen Not Detected (NotDetected) U Methamphetamines Scrn Not Detected (NotDetected) U Benzodiazepines Scrn Detected H (NotDetected) Urine Cocaine Screen Not Detected (NotDetected) U Marijuana (THC) Screen Detected H (NotDetected) Serum Alcohol mg/dL 12/11/20 12/11/20 12/11/20 Range/Units 17:12 17:12 17:12 WBC (3.8-10.6) k/uL RBC (3.80-5.40) m/uL Hgb (11.4-16.0) gm/dL Hct (34.0-46.0) % MCV (80.0-100.0) fL MCH (25.0-35.0) pg MCHC (31.0-37.0) g/dL RDW (11.5-15.5) % Plt Count (150-450) k/uL MPV Neutrophils % % Lymphocytes % % Monocytes % % Eosinophils % % Basophils % % Neutrophils # (1.3-7.7) k/uL Lymphocytes # (1.0-4.8) k/uL Monocytes # (0-1.0) k/uL Eosinophils # (0-0.7) k/uL Basophils # (0-0.2) k/uL PT (9.0-12.0) sec INR (<1.2) Sodium 139 (137-145) mmol/L Potassium 4.3 (3.5-5.1) mmol/L Chloride 108 H (98-107) mmol/L Carbon Dioxide 20 L (22-30) mmol/L Anion Gap 11 mmol/L BUN 14 (7-17) mg/dL Creatinine 0.65 (0.52-1.04) mg/dL Est GFR (CKD-EPI)AfAm >90 (>60 ml/min/1.73 sqM) Est GFR (CKD-EPI)NonAf >90 (>60 ml/min/1.73 sqM) Glucose 102 H (74-99) mg/dL Calcium 10.0 (8.4-10.2) mg/dL Total Bilirubin 0.6 (0.2-1.3) mg/dL AST 33 (14-36) U/L ALT 28 (4-34) U/L Alkaline Phosphatase 111 (38-126) U/L Troponin I <0.012 (0.000-0.034) ng/mL Total Protein 7.4 (6.3-8.2) g/dL Albumin 4.8 (3.5-5.0) g/dL Lipase 100 (23-300) U/L Urine Color Urine Appearance (Clear) Urine pH (5.0-8.0) Ur Specific [place] (1.001-1.035) Urine Protein (Negative) Urine Glucose (UA) (Negative) Urine Ketones (Negative) Urine Blood (Negative) Urine Nitrite (Negative) Urine Bilirubin (Negative) Urine Urobilinogen (<2.0) mg/dL Ur Leukocyte Esterase (Negative) Urine HCG, Qual Not Detected (Not Detectd) Salicylates <1.0 mg/dL Urine Opiates Screen (NotDetected) Ur Oxycodone Screen (NotDetected) Urine Methadone Screen (NotDetected) Ur Propoxyphene Screen (NotDetected) Acetaminophen <10.0 ug/mL Ur Barbiturates Screen (NotDetected) U Tricyclic Antidepress (NotDetected) Ur Phencyclidine Scrn (NotDetected) Ur Amphetamines Screen (NotDetected) U Methamphetamines Scrn (NotDetected) U Benzodiazepines Scrn (NotDetected) Urine Cocaine Screen (NotDetected) U Marijuana (THC) Screen (NotDetected) Serum Alcohol <10 mg/dL - EKG Data -: EKG Interpreted by Me EKG Comments: 12-lead Electrocardiogram Interpretation Note EKG was reviewed and interpreted by myself. 12-lead ECG performed at 1706 is interpreted by me as revealing normal sinus rhythm at a rate of 81 beats per minute. [place] is normal. ID interval is 150 ms, QRS duration 72 ms, QTc is 464 ms.. There were no ST or T wave abnormalities to suggest myocardial ischemia or injury. R wave progression across the precordium was satisfactory. By my inte rpretation this EKG is non-diagnostic for acute ischemia. Disposition Clinical Impression: Drug overdose, Suicidal ideations, Chronic pain, Polysubstance overdose Disposition: ADMITTED IP TO THIS HOSP Condition: Stable
[2020-12-12 06:34] VITALS: TEMP 98.1
[2020-12-12 08:09] VITALS: RESP 16
[2020-12-12] MEDS ORDERED: ACETAMINOPHEN TAB 325 MG TAB PO PRN (09:52)
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
--- NOTE | 2020-12-12 14:04 | P.HPIM ---
History of Present Illness H&P Date: 12/12/20 Patient is a 55-year-old female with past medical history remarkable for asthma, kidney stone, back pain, skin cancer, herniated disks presents emergency Department following an overdose. Patient presents approximately one half hours after taking multiple pain medications at home. Patient states she took approximately 5 pills each of Cullen 5) Percocet, gabapentin, Lexapro, Xanax. She said "I'm sick of the pain." She does not respond blood or not she has been having suicidal ideations. She denies any homicidal ideations, attempts complaints. She denies any visual or auditory hallucinations. Denies any other acute complaints at this time. Denies any chest pain, shortness breath, abdomi nal pain, nausea, vomiting, fevers, chills, cough. Patient is brought by family members over concern for overdose. Review of Systems GENERAL: Patient denies fever. Denies chills. EYES: Denies blurred vision. Denies vision changes. Denies eye pain. EARS, NOSE, MOUTH, & THROAT: Denies headache. Denies sore throat. Denies ear pain. RESPIRATORY: Admits to asthma CARDIOVASCULAR: Denies chest pain or pressure. Denies palpitations. Denies arrhythmias. GASTROINTESTINAL: Denies abdominal pain. Denies diarrhea. Denies constipation. Denies nausea. Denies vomiting. Denies heartburn. Denies blood in the stool. GENITOURINARY: Denies urinary frequency. Denies burning. Denies dysuria. Denies cloudy urine. Denies blood in the urine. MUSCULOSKELETAL: Denies myalgias. Denies joint swelling. Denies decreased range of motion beyond patients baseline. INTEGUMENTARY: Denies pruitis. Denies rash. PSYCHIATRIC: Depression and anxiety have been increasing over the past few months. ENDOCRINE: Denies weight change. Denies polydipsia. Denies polyuria. HEMATOLOGIC: Denies bleeding disorders. Past Medical History Past Medical History: Asthma, Cancer Additional Past Medical History / Comment(s): Current right kidney stone. HX SKIN CANCER X2 01/2020 and in 2009, HERNIATED DISCS, BACK PAIN. History of Any Multi-Drug Resistant Organisms: None Reported Past Surgical History: Cholecystectomy, Hysterectomy, Tubal Ligation Additional Past Surgical History / Comment(s): Skin cancer removed from face and bilateral shoulders. Past Anesthesia/Blood Transfusion Reactions: Motion Sickness, Postoperative Naus ea & Vomiting (PONV) Additional Past Anesthesia/Blood Transfusion Reaction / Comment(s): Slow to come out of anesthesia. Past Psychological History: ADD/ADHD, Anxiety Smoking Status: Former smoker Past Alcohol Use History: Occasional Past Drug Use History: None Reported - Past Family History Mother Family Medical History: No Reported History Father Family Medical History: Cancer Additional Family Medical History / Comment(s): PROSTATE CANCER. Medications and Allergies Home Medications Medication Instructions Recorded Confirmed Type Budesonide-Formot 160-4.5 Mcg 1 - 2 puff INHALATION RT-BID PRN 07/22/16 12/11/20 History [Symbicort 160-4.5 Mcg Inhaler] ALPRAZolam [Xanax] 0.25 mg PO DAILY PRN 07/23/20 12/11/20 History Albuterol Sulfate [Ventolin HFA] 2 puff INHALATION RT-QID PRN 11/19/20 12/11/20 History Escitalopram [Lexapro] 20 mg PO DAILY 11/19/20 12/11/20 History Famotidine [Pepcid] 20 mg PO BID #14 tablet 11/19/20 12/11/20 Rx HYDROcodone/APAP 5-325MG [Cullen 1 tab PO Q4HR PRN 3 Days #18 tab 11/19/20 12/11/20 Rx 5-325] Ondansetron Odt [Zofran ODT] 4 mg PO Q8HR PRN #10 tab 11/19/20 12/11/20 Rx Tamsulosin [Flomax] 0.4 mg PO HS 12/11/20 12/11/20 History Allergies Allergy/AdvReac Type Severity Reaction Status Date / Time Akpctcl-Fpa-Aha Reductase Allergy leg pain Verified 12/11/20 16:44 Inhibitor Physical Exam Osteopathic Statement: *. No significant issues noted on an osteopathic stru ctural exam other than those noted in the History and Physical/Consult. Vitals: Vital Signs Temp Pulse Resp BP Pulse Ox 12/12/20 08:08 62 16 116/68 99 12/12/20 06:33 98.1 F 68 17 120/68 98 12/11/20 22:45 68 16 103/73 94 L 12/11/20 19:25 62 18 116/70 96 12/11/20 17:45 62 18 121/73 97 12/11/20 17:27 12 12/11/20 16:37 98.9 F 77 16 146/78 91 L Intake and Output 12/11/20 12/12/20 12/12/20 22:59 06:59 14:59 Other: Weight 88.451 kg GENERAL: This is a -55 year-old in no apparent distress at the time of examination. Pleasant and cooperative. HEENT: Head is atraumatic, normocephalic. Pupils are equal, round, and reactive to light. Sclerae anicteric. Conjunctivae are clear. Mucus membranes of the mouth are moist. Neck is supple. RESPIRATORY: Clear to auscultation. No wheezes, rales, or rhonchi. No chest wall tenderness is noted on palpation or with deep breathing. CARDIOVASCULAR: Regular rate and rhythm. S1 and S2 noted. No systolic or diastolic murmur auscultated. No JVD noted. No S3 or S4 noted. GASTROINTESTINAL: No distention noted. Abdomen soft and round. Normal active bowel sounds auscultated x 4 quadrants. No pain or tenderness noted upon palpation. INTEGUMENTARY: No cyanosis. No jaundice. No rashes noted. No cellulitis noted. EXTREMITIES: 2+ peripheral pulses. No evidence of peripheral edema. No calf tenderness noted. NEUROLOGIC: Cranial nerves II-XII intact. PSYCHIATRIC: Awake, alert, and oriented X 3. Appropriate affect. Intact judgement and insight. Results CBC & Chem 7: 12/11/20 17:12 12/11/20 17:12 Labs: Abnormal Lab Results - Last 24 Hours (Table) 12/11/20 12/11/20 12/11/20 Range/Units 17:12 17:12 17:12 Neutrophils # 7.8 H (1.3-7.7) k/uL Chloride 108 H (98-107) mmol/L Carbon Dioxide 20 L (22-30) mmol/L Glucose 102 H (74-99) mg/dL Urine Opiates Screen Detected H (NotDetected) Ur Oxycodone Screen Detected H (NotDetected) U Benzodiazepines Scrn Detected H (NotDetected) U Marijuana (THC) Screen Detected H (NotDetected) Assessment and Plan (1) Chronic pain Current Visit: Yes Status: Acute Code(s): G89.29 - OTHER CHRONIC PAIN SNOMED Code(s): 09343080 (2) Drug overdose Current Visit: Yes Status: Acute Code(s): T50.901A - POISONING BY UNSP DRUG/MEDS/BIOL SUBST, ACCIDENTAL, INIT SNOMED Code(s): 03899193 (3) Polysubstance overdose Current Visit: Yes Status: Acute Code(s): T50.901A - POISONING BY UNSP DRUG/MEDS/BIOL SUBST, ACCIDENTAL, INIT SNOMED Code(s): 67752645 (4) Suicidal ideations Current Visit: Yes Status: Acute Code(s): R45.851 - SUICIDAL IDEATIONS SNOMED Code(s): 5303710 Plan: Patient seen in the emergency department with attempted suicide by drug overdose she is currently medically stable she was given Narcan for the opiates that she took which is approximately 6 tablets she was observed overnight her vitals remained stable her labs are unremarkable her Tylenol level is less than 10 repeat in progress. Psychiatric services to see patient today
--- NOTE | 2020-12-12 14:07 | P.DS ---
Providers Date of admission: 12/11/20 19:16 Expected date of discharge: 12/12/20 Attending physician: Babatunde Conde Consults: 12/11/20 19:17 Consult Physician Urgent Consulting Provider: Rafiq Westbrook Reason/Comments: Overdose, suicide attempt, depression Do you want consulting provider notified?: Yes Primary care physician: Babatunde Conde - Discharge Diagnosis(es) (1) Chronic pain Current Visit: Yes Status: Acute (2) Drug overdose Current Visit: Yes Status: Acute (3) Polysubstance overdose Current Visit: Yes Status: Acute (4) Suicidal ideations Current Visit: Yes Status: Acute Patient Condition at Discharge: Stable Plan - Discharge Summary New Discharge Prescriptions: No Action Budesonide-Formot 160-4.5 Mcg [Symbicort 160-4.5 Mcg Inhaler] 1 - 2 puff INHALATION RT-BID PRN PRN Reason: Asthma Escitalopram [Lexapro] 20 mg PO DAILY Famotidine [Pepcid] 20 mg PO BID #14 tablet Ondansetron Odt [Zofran ODT] 4 mg PO Q8HR PRN #10 tab PRN Reason: Nausea ALPRAZolam [Xanax] 0.25 mg PO DAILY PRN PRN Reason: Anxiety Albuterol Sulfate [Ventolin HFA] 2 puff INHALATION RT-QID PRN PRN Reason: Shortness Of Breath HYDROcodone/APAP 5-325MG [Redmond 5-325] 1 tab PO Q4HR PRN 3 Days #18 tab PRN Reason: Pain Tamsulosin [Flomax] 0.4 mg PO HS Discharge Medication List Budesonide-Formot 160-4.5 Mcg [Symbicort 160-4.5 Mcg Inhaler] 1 - 2 puff INHALATION RT-BID PRN 07/22/16 [History] ALPRAZolam [Xanax] 0.25 mg PO DAILY PRN 07/23/20 [History] Albuterol Sulfate [Ventolin HFA] 2 puff INHALATION RT-QID PRN 11/19/20 [History] Escitalopram [Lexapro] 20 mg PO DAILY 11/19/20 [History] Famotidine [Pepcid] 20 mg PO BID #14 tablet 11/19/20 [Rx] HYDROcodone/APAP 5-325MG [Redmond 5-325] 1 tab PO Q4HR PRN 3 Days #18 tab 11/19/20 [Rx] Ondansetron Odt [Zofran ODT] 4 mg PO Q8HR PRN #10 tab 11/19/20 [Rx] Tamsulosin [Flomax] 0.4 mg PO HS 12/11/20 [History] Plan of Treatment: Patient will be discharged today she'll have follow-up with psychiatric services and counseling she'll continue on antidepressant medications she'll follow up in office in 1 week she was cleared by psychiatric services to be discharged she was cleared medically and discharged. End of dictation please see history and physical for complete report
[2020-12-12 14:39] VITALS: BP 126/89; PULSE 86
== END 2020-12-12 14:40 | disposition home or self-care (01) ==
LOC: EC 16:31 → 6NMEDSUR 19:16
PROVIDERS: ADMIT Family Medicine; ATTEND Family Medicine
DX: T40.2X2A Poisoning by other opioids, intentional self-harm, initial encounter (principal); F33.2 Major depressive disorder, recurrent severe without psychotic features; T42.4X2A Poisoning by benzodiazepines, intentional self-harm, initial encounter; T42.6X2A Poisoning by other antiepileptic and sedative-hypnotic drugs, intentional self-harm, initial encounter; T43.222A Poisoning by selective serotonin reuptake inhibitors, intentional self-harm, initial encounter; F43.10 Post-traumatic stress disorder, unspecified; F41.9 Anxiety disorder, unspecified; J45.909 Unspecified asthma, uncomplicated; J98.11 Atelectasis; R91.8 Other nonspecific abnormal finding of lung field; R09.02 Hypoxemia; G89.29 Other chronic pain; M54.9 Dorsalgia, unspecified; F90.9 Attention-deficit hyperactivity disorder, unspecified type; F17.210 Nicotine dependence, cigarettes, uncomplicated; Z79.51 Long term (current) use of inhaled steroids; Z79.899 Other long term (current) drug therapy; Z88.8 Allergy status to other drugs, medicaments and biological substances; Z85.828 Personal history of other malignant neoplasm of skin; Z87.442 Personal history of urinary calculi; Z90.49 Acquired absence of other specified parts of digestive tract; Z90.710 Acquired absence of both cervix and uterus; Z98.51 Tubal ligation status; Z80.42 Family history of malignant neoplasm of prostate
CPT/HCPCS: 96361; 96374; 96375; 99285; 36415; 93005; 80053; 83690; 84484; 85025; 85610; 81003; 81025; 80306; 80143 ×2; 80320; 80179; 71045; G0378 ×2; J2310; J2405

== ENCOUNTER → 2021-05-09 | Outpatient (CLI) | payer OTHER ==
--- NOTE | 2021-05-09 11:44 | XR ---
EXAMINATION TYPE: XR pelvis AP view DATE OF EXAM: 05/09/2021 CLINICAL HISTORY: Pain after fall injury. TECHNIQUE: A single AP view of the pelvis is obtained. COMPARISON: None CT abdomen and pelvis November 19, 2020. FINDINGS: There is no acute fracture/dislocation evident in the pelvis. The hip and sacroiliac join ts remain symmetric and within normal limits. Pubic symphysis is intact. The overlying soft tissue ap pears unremarkable. IMPRESSION: There is no acute fracture or dislocation in the pelvis.
--- NOTE | 2021-05-09 11:45 | XR ---
EXAMINATION TYPE: XR knee complete RT DATE OF EXAM: 05/09/2021 CLINICAL HISTORY: Pain after fall injury. TECHNIQUE: Three views of the right knee are obtained. COMPARISON: None. FINDINGS: There is no acute fracture/dislocation evident in the right knee. [id number] tricomp artment joint space loss without significant spurring. The overlying soft tissue appears unremarkabl e. Incidental fabella. IMPRESSION: There is no acute fracture or dislocation in the right knee.
--- NOTE | 2021-05-09 11:48 | XR ---
EXAMINATION TYPE: XR hand complete 3 views LT, XR lumbar spine 3V DATE OF EXAM: 05/09/2021 COMPARISON: NONE HISTORY: 56-year-old female pain after falling on ice this morning. S60.222A, S33.5XXA, S80.01XA FINDINGS: Left hand: Mild degenerative spurring of the first CMC and triscaphe joints. Benign bone island head of the ulna . No acute fracture, subluxation, or dislocation. Lumbar spine: 5 lumbar type vertebral bodies. Facet arthropathy lower lumbar spine. Vertebral body heights are pres erved and alignment is maintained. IMPRESSION: 1. Left hand: Mild OA at the base of the thumb. No acute osseous abnormality seen. 2. Lumbar spine: Facet arthropathy lower lumbar spine. No vertebral compression collapse or malalignm ent.
== END | disposition home or self-care (01) ==
LOC: RADXRMAIN 10:57
PROVIDERS: ATTEND Emergency Medicine
DX: S60.222A Contusion of left hand, initial encounter (principal); S33.5XXA Sprain of ligaments of lumbar spine, initial encounter; S80.01XA Contusion of right knee, initial encounter; M18.9 Osteoarthritis of first carpometacarpal joint, unspecified; M47.896 Other spondylosis, lumbar region; X58.XXXA Exposure to other specified factors, initial encounter
CPT/HCPCS: 72100; 72170

== ENCOUNTER → 2021-06-07 | Outpatient (CLI) | payer OTHER ==
--- NOTE | 2021-06-07 17:50 | XR ---
EXAMINATION TYPE: XR knee complete RT DATE OF EXAM: 06/07/2021 5:39 PM INDICATION: Patient age:Female; 56 years old; Reason for study: S80.01XD; COMPARISON: None. TECHNIQUE: The right knee was examined in 3 projections. FINDINGS: No evidence of any acute osseous pathology, joint space narrowing, soft tissue swelling, or joint effusion is noted. Well-corticated Fabella posterior knee is present. IMPRESSION: 1. No acute osseous pathology. 2. Mild tricompartmental osteoarthritic changes.
--- NOTE | 2021-06-07 17:51 | XR ---
EXAMINATION TYPE: XR tibia fibula RT DATE OF EXAM: 06/07/2021 5:39 PM INDICATION: Patient age:Female; 56 years old; Reason for study: S80.01XD; COMPARISON: None TECHNIQUE: The right tibia/fibula was examined in AP and lateral projections. FINDINGS: No evidence of any acute osseous pathology, joint dislocation, or soft tissue swelling is n oted. Well-corticated Fabella posterior knee is present. Calcaneal Achilles enthesophyte and plantar spur. IMPRESSION: No evidence of acute fracture.
== END | disposition home or self-care (01) ==
LOC: RADXRMAIN 17:14
PROVIDERS: ATTEND Emergency Medicine
DX: S80.01XD Contusion of right knee, subsequent encounter (principal); X58.XXXD Exposure to other specified factors, subsequent encounter

== ENCOUNTER → 2022-07-25 | Outpatient (CLI) | payer OTHER ==
--- NOTE | 2022-07-25 14:16 | XR ---
EXAMINATION TYPE: XR KUB DATE OF EXAM: 07/25/2022 HISTORY: Pain Comparison: None. Single KUB is submitted for interpretation. Findings: Right renal calculi: None Visualized. Obscured by overlying bowel content. Right ureteral calculi: None Visualized. Left renal calculi: None Visualized.Obscured by overlying bowel content. Left ureteral calculi: None Visualized. Pelvic calcifications: None Visualized. Bowel gas pattern is unremarkable. No free air. No mass effects. IMPRESSION: 1. As above
== END | disposition home or self-care (01) ==
LOC: RADXRMAIN 13:47
PROVIDERS: ATTEND Urology
DX: N20.1 Calculus of ureter (principal)
CPT/HCPCS: 74018

== ENCOUNTER → 2022-08-11 | Outpatient (CLI) | payer OTHER ==
--- NOTE | 2022-08-12 06:01 | CT ---
EXAMINATION TYPE: CT abdomen pelvis wo con DATE OF EXAM: 08/11/2022 HISTORY: Rt side flank pain, hx of kidney stones and lithotripsy CT DLP: 1092.3 mGycm. Automated Exposure Control for Dose Reduction was Utilized. TECHNIQUE: CT scan of the abdomen and pelvis is performed without oral or IV contrast. COMPARISON: Prior CT abdomen and pelvis November 19, 2020 FINDINGS: Within the limitations of a non-contrast study, the following observations are made. LUNG BASES: Cardiomegaly with mild/moderate bibasilar linear scarring and/or atelectasis is redemonst rated. LIVER/GB: Cholecystectomy clips are redemonstrated. Liver is diffusely low dense relative to spleen c onsistent with mild diffuse fatty infiltration PANCREAS: No significant abnormality is seen. SPLEEN: Anterior splenule axial image 54 redemonstrated. ADRENALS: No significant abnormality is seen. KIDNEYS: No renal stones or hydronephrosis is seen currently. No intraluminal calculi in the bladder. Single tiny right pelvic phlebolith on axial image 135 redemonstrated. BOWEL: Appendix surgically absent. Debris filled stomach suggests recent meal ingestion. No suspiciou s bowel dilatation. GENITAL ORGANS: Uterus is surgically absent. LYMPH NODES: No greater than 1cm abdominal or pelvic lymph nodes are appreciated. OSSEOUS STRUCTURES: No significant abnormality is seen. OTHER: No significant additional abnormality is seen. IMPRESSION: No renal stones or hydronephrosis is seen bilaterally. No suspicious new or acute finding s are evident on this exam.
== END | disposition home or self-care (01) ==
LOC: RADCTMAIN 17:32
PROVIDERS: ATTEND Urology
DX: N20.2 Calculus of kidney with calculus of ureter (principal)
CPT/HCPCS: 74176

== ENCOUNTER → 2024-07-11 | Outpatient (CLI) | payer BC, OTHER ==
--- NOTE | 2024-07-12 07:51 | MM ---
Reason for Exam: Screening (asymptomatic). Last mammogram was performed 1 year(s) and 5 month(s) ago. Patient History: Menarche at age 17. First Full-Term at age 22. Left ovary removed at age 51. Right ovary removed at age 51. Hysterectomy at age 43. Postmenopausal. Patient has history of breast feeding. Other cancer. Currently using Estrogen, for 2 years. Currently using Progesterone, for 2 years. Maternal cousin had breast cancer, age 35. Risk Values: Katty 5 year model risk: 1.1%. NCI Lifetime model risk: 6.3%. Prior Study Comparison: 07/10/2016 Screening Mammogram, [facility]. 11/16/2018 Bilateral Screening Mammogram, [facility]. 12/03/2018 Left Diagnostic Mammogram, [facility]. Tissue Density: The breasts are heterogeneously dense, which may obscure small masses. Findings: Analyzed By CAD. Stable 15 mm mass in the right breast outer aspect correlates with simple appearing thin-walled cyst on ultrasound February 18, 2023. Benign-appearing bilateral axillary lymph nodes are present. There is no suspicious new group of microcalcifications or new suspicious mass in either breast. Overall Assessment: Benign, BI-RAD 2 Management: Screening Mammogram of both breasts in 1 year. Some advise annual bilateral breast ultrasound surveillance in patients with background dense tissue. Patient should continue monthly self-breast exams. A clinical breast exam by your physician is recommended on an annual basis. This exam should not preclude additional follow-up of suspicious palpable abnormalities. Note on Katty scores and lifetime risk: 1. A Katty score greater than 3% is considered moderate risk. If this is the case, consider specialist referral to assess eligibility for a risk reducing agent. 2. If overall lifetime risk for the development of breast cancer is 20% or higher, the patient may qualify for future screening with alternating mammogram and breast MRI. [facility], , 07/12/2024 7:48 AM. Electronically signed and approved by: Flash Keller M.D.
== END | disposition home or self-care (01) ==
LOC: RADMAMWWP 15:49
PROVIDERS: ATTEND Obstetrics & Gynecology
DX: Z12.31 Encounter for screening mammogram for malignant neoplasm of breast (principal); R92.333 Mammographic heterogeneous density, bilateral breasts; Z78.0 Asymptomatic menopausal state; Z80.3 Family history of malignant neoplasm of breast
CPT/HCPCS: 77067